=== PATIENT | male | born 1955 | race Caucasian/White ===

== ENCOUNTER 2017-01-11 18:13 | Emergency (ER) | payer SELFPAY ==
[~2017-01-11] VITALS: Ht 182.9 cm; Wt 108.9 kg
[~2017-01-11 18:13] MED LIST: LISI-285 PO
[2017-01-11 18:22] VITALS: BP 153/88
[2017-01-11] MEDS ORDERED: KETOROLAC TROMETH 60MG/2ML VIAL IM ONE (19:45)
== END 2017-01-11 21:20 | disposition home or self-care (01) ==
LOC: ER 18:13
DX: M10.9 Gout, unspecified (principal); M25.561 Pain in right knee; M19.90 Unspecified osteoarthritis, unspecified site; E78.5 Hyperlipidemia, unspecified; I10 Essential (primary) hypertension; F17.210 Nicotine dependence, cigarettes, uncomplicated; Z79.899 Other long term (current) drug therapy
CPT/HCPCS: 36415; 73562; 84550; 96372; 99285; J1885

== ENCOUNTER → 2019-04-29 | Emergency (ER) | payer SELFPAY ==
[~2019-04-29] VITALS: Ht 182.9 cm; Wt 111.1 kg
[~2019-04-29] MED LIST changes: +ASPI81CH43 PO; +ATOR40TA52 PO; +ATORVASTATIN 20 MG TAB PO ONE; +DOCU-94 PO; -LISI-285 PO; +METO25TA5 PO; +POTA-220 PO; +SODIUM CHLORIDE 0.9% 500 ML IV ONE; +TICA90TA PO; +diphenhdrAMINE HCL 50 MG/1 ML VL IV ONE; +methylPREDNISolone SOD SUCC 125 MG/2 ML VL IV ONE
[2019-04-29 23:09] LABS: Basophils # (auto) 0.1 10 ^3/uL (0-0.2); Basophils % (auto) 1.1 % (0.0-2.0); Eosinophils # (auto) 0.4 10 ^3/uL (0-0.8); Eosinophils % (auto) 2.9 % (0.0-7.0); Hematocrit 45.4 % (41.0-53.0); Hemoglobin 15.7 g/dL (13.5-17.5); Lymphocytes # (auto) 2.5 10 ^3/uL (0.4-5.4); Lymphocytes % (auto) 19.6 % (10.0-50.0); Mean Corpuscular Hemoglobin 32.5 pg (28.0-32.0); Mean Corpuscular Hgb Conc. 34.6 g/dL (32.0-36.0); Monocytes # (auto) 1.2 10 ^3/uL (0-1.3); Monocytes % (auto) 9.6 % (0.0-12.0); Neutrophils # (auto) 8.6 10 ^3/uL (1.6-8.6); Neutrophils % (auto) 66.8 % (37.0-80.0); Nucleated Red Blood Cells % 0.2 %; Platelet Count (auto) 280 10^3/uL (140-450); Red Blood Cells 4.83 10^6/uL (4.5-5.90); Red Cell Distribution Width 12.5 % (11.8-14.3); White Blood Cell 12.8 10^3/uL (4.4-10.8)
[2019-04-29 23:20] VITALS: BP 115/63
[2019-04-29 23:26] LABS: Albumin 3.4 g/dL (3.4-5.0); BUN/Creatinine Ratio 15.7; Calcium 8.6 mg/dL (8.5-10.1); Potassium 4.3 mmol/L (3.5-5.1)
[2019-04-29 23:31] LABS: Bilirubin, Total 0.4 mg/dL (0.2-1.0); Total Protein 7.8 g/dL (6.4-8.2)
== END | disposition home or self-care (01) ==
LOC: ER 17:50
DX: T78.40XA Allergy, unspecified, initial encounter (principal); M19.90 Unspecified osteoarthritis, unspecified site; I10 Essential (primary) hypertension; I25.2 Old myocardial infarction; Z86.73 Personal history of transient ischemic attack (TIA), and cerebral infarction without residual deficits; F17.210 Nicotine dependence, cigarettes, uncomplicated; Z88.8 Allergy status to other drugs, medicaments and biological substances; X58.XXXA Exposure to other specified factors, initial encounter
CPT/HCPCS: 36415; 71045; 80053; 84484; 85025; 96374; 96375; 99284; J1200; J2930

== ENCOUNTER → 2019-09-12 | Outpatient (CLI) | payer MEDICAID ==
[~2019-09-12] MED LIST changes: -ATORVASTATIN 20 MG TAB PO ONE; -SODIUM CHLORIDE 0.9% 500 ML IV ONE; -TICA90TA PO; -diphenhdrAMINE HCL 50 MG/1 ML VL IV ONE; -methylPREDNISolone SOD SUCC 125 MG/2 ML VL IV ONE
== END | disposition home or self-care (01) ==
LOC: Rad HDHVI 08:47
PROVIDERS: ATTEND Internal Medicine Cardiovascular Disease
DX: I21.19 ST elevation (STEMI) myocardial infarction involving other coronary artery of inferior wall (principal); Z95.5 Presence of coronary angioplasty implant and graft
CPT/HCPCS: 93306

== ENCOUNTER → 2019-09-29 | Outpatient (CLI) | payer MEDICARE, MEDICAID ==
[~2019-09-29] VITALS: Ht 182.9 cm; Wt 115.7 kg
[~2019-09-29] MED LIST changes: +ADENOSINE 90 MG/30 ML INJ IV ONE; +ADENOSINE 97 MG in GIVE UN-DILUTED 0 ML IV ONE
== END | disposition home or self-care (01) ==
LOC: Rad HDHVI 08:47
PROVIDERS: ATTEND Internal Medicine Cardiovascular Disease
DX: I10 Essential (primary) hypertension (principal); I25.10 Atherosclerotic heart disease of native coronary artery without angina pectoris; I25.2 Old myocardial infarction; E78.00 Pure hypercholesterolemia, unspecified
CPT/HCPCS: 78452; 93005; 96374; 96375; A9500; J0153

== ENCOUNTER → 2020-03-04 | Outpatient (CLI) | payer MEDICARE, MEDICAID ==
[~2020-03-04] MED LIST changes: -ADENOSINE 90 MG/30 ML INJ IV ONE; -ADENOSINE 97 MG in GIVE UN-DILUTED 0 ML IV ONE
== END | disposition home or self-care (01) ==
LOC: LAB 11:48
PROVIDERS: ATTEND Urology
DX: R97.20 Elevated prostate specific antigen [PSA] (principal)
CPT/HCPCS: 84154

== ENCOUNTER → 2020-04-01 | Outpatient (CLI) | payer MEDICARE, MEDICAID | END | disposition home or self-care (01) | LOC: LAB 17:34 | PROVIDERS: ATTEND Urology | DX: N39.0 Urinary tract infection, site not specified (principal) | CPT/HCPCS: 87086 ==

== ENCOUNTER → 2020-04-22 | Outpatient (CLI) | payer MEDICARE, MEDICAID | END | disposition home or self-care (01) | LOC: LAB 08:00 | PROVIDERS: ATTEND Urology | DX: R35.1 Nocturia (principal); N39.0 Urinary tract infection, site not specified | CPT/HCPCS: 84154 ==

== ENCOUNTER → 2020-06-28 | Outpatient (CLI) | payer MEDICARE, MEDICAID ==
[2020-06-28 12:06] LABS: Urine Blood Negative /uL (Negative); Urine Specific Gravity 1.028 (1.001-1.035)
[2020-06-28 12:08] LABS: Basophils # (auto) 0 10 ^3/uL (0-0.2); Basophils % (auto) 0.3 % (0.0-2.0); Eosinophils # (auto) 0.1 10 ^3/uL (0-0.8); Eosinophils % (auto) 0.6 % (0.0-7.0); Hematocrit 45.3 % (41.0-53.0); Hemoglobin 15.5 g/dL (13.5-17.5); Lymphocytes % (auto) 35.3 % (10.0-50.0); Mean Corpuscular Hemoglobin 32.2 pg (28.0-32.0); Mean Corpuscular Hgb Conc. 34.3 g/dL (32.0-36.0); Mean Corpuscular Volume 93.9 fL (80.0-100.0); Monocytes # (auto) 1.2 10 ^3/uL (0-1.3); Monocytes % (auto) 8.2 % (0.0-12.0); Neutrophils # (auto) 7.9 10 ^3/uL (1.6-8.6); Neutrophils % (auto) 55.6 % (37.0-80.0); Nucleated Red Blood Cells % 0.1 %; Platelet Count (auto) 316 10^3/uL (140-450); Red Blood Cells 4.82 10^6/uL (4.5-5.90); Red Cell Distribution Width 12.9 % (11.8-14.3); White Blood Cell 14.3 10^3/uL (4.4-10.8)
[2020-06-28 12:24] LABS: Potassium 3.7 mmol/L (3.5-5.1)
[2020-06-28 12:34] LABS: Albumin 3.2 g/dL (3.4-5.0); BUN/Creatinine Ratio 25.3; Bilirubin, Total 0.4 mg/dL (0.2-1.0); Calcium 8.6 mg/dL (8.5-10.1); Total Protein 7.2 g/dL (6.4-8.2)
[2020-06-28 12:46] LABS: Free T4 (Free Thyroxine) 1.02 ng/dL (0.89-1.76)
[2020-06-28 12:47] LABS: Prostate Specific Antigen 0.98 ng/mL (0.0-4.0)
== END | disposition home or self-care (01) ==
LOC: LAB 08:02
PROVIDERS: ATTEND Internal Medicine Cardiovascular Disease
DX: C61 Malignant neoplasm of prostate (principal); D51.3 Other dietary vitamin B12 deficiency anemia; I10 Essential (primary) hypertension; E11.9 Type 2 diabetes mellitus without complications; E55.9 Vitamin D deficiency, unspecified; D64.9 Anemia, unspecified; R00.2 Palpitations; R53.1 Weakness; R30.0 Dysuria
CPT/HCPCS: 36415; 80053; 80061; 81003; 82306; 82607; 83036; 84153; 84403; 84439; 84443; 85025; 87086

== ENCOUNTER → 2020-07-05 | Outpatient (CLI) | payer MEDICARE, MEDICAID ==
[~2020-07-05] VITALS: Ht 30.5 cm; Wt 0.5 kg
[~2020-07-05] MED LIST changes: +levoFLOXacin 500MG 100 ML IV ONE
[2020-07-05 11:19] VITALS: BP 134/78
[2020-07-05 12:50] VITALS: BP 131/87
== END | disposition home or self-care (01) ==
LOC: CHF HDHVI 11:20
PROVIDERS: ATTEND Internal Medicine Cardiovascular Disease
DX: R05 Cough (principal); D64.9 Anemia, unspecified; I10 Essential (primary) hypertension; E11.9 Type 2 diabetes mellitus without complications; Z85.46 Personal history of malignant neoplasm of prostate
CPT/HCPCS: 96365; G0463; J1956

== ENCOUNTER 2021-02-28 09:46 | Inpatient (IN) | payer MEDICARE, MEDICAID ==
[~2021-02-28] VITALS: Ht 182.9 cm; Wt 111.5 kg
[~2021-02-28 09:46] MED LIST changes: -levoFLOXacin 500MG 100 ML IV ONE
[2021-02-28 11:19] LABS: Basophils # (auto) 0 10 ^3/uL (0-0.2); Basophils % (auto) 0.4 % (0.0-2.0); Eosinophils # (auto) 0 10 ^3/uL (0-0.8); Hematocrit 45.3 % (41.0-53.0); Hemoglobin 15.8 g/dL (13.5-17.5); Lymphocytes # (auto) 1.3 10 ^3/uL (0.4-5.4); Lymphocytes % (auto) 16.7 % (10.0-50.0); Mean Corpuscular Hemoglobin 31.7 pg (28.0-32.0); Mean Corpuscular Hgb Conc. 34.9 g/dL (32.0-36.0); Monocytes % (auto) 13.4 % (0.0-12.0); Neutrophils # (auto) 5.4 10 ^3/uL (1.6-8.6); Neutrophils % (auto) 69.5 % (37.0-80.0); Nucleated Red Blood Cells % 0.2 %; Red Blood Cells 4.98 10^6/uL (4.5-5.90); Red Cell Distribution Width 12.8 % (11.8-14.3); White Blood Cell 7.8 10^3/uL (4.4-10.8)
[2021-02-28 11:26] LABS: Calcium 7.6 mg/dL (8.5-10.1); Potassium 3.3 mmol/L (3.5-5.1)
[2021-02-28 11:31] LABS: Bilirubin, Total 0.7 mg/dL (0.2-1.0); Total Protein 7.5 g/dL (6.4-8.2)
[2021-02-28 13:23] LABS: Urine Bacteria MANY /hpf (None Seen); Urine Blood TRACE /uL (Negative); Urine Mucus FEW (None Seen); Urine Specific Gravity 1.019 (1.001-1.035); Urine WBC 312 /hpf (0 - 3)
[2021-02-28] MEDS ORDERED: SODIUM CHLORIDE 0.9% 500 ML IV ONE (13:45)
[2021-02-28] MEDS ORDERED: AZITHROMYCIN 250 MG TAB PO ONE (13:45)
[2021-02-28] MEDS ORDERED: cefTRIAXone 1GM/50ML D5W 50 ML IV ONE (14:00)
[2021-02-28] MEDS ORDERED: NITROGLYCERIN 0.4 MG SL TAB SL PRN ×2 (15:15→16:45)
[2021-02-28] MEDS ORDERED: MORPHINE SULFATE INJECTION 2 MG/ML SYRG IV PRN ×3 (15:15→16:45)
[2021-02-28] MEDS ORDERED: DOCUSATE SOD 100 MG CAP PO PRN (16:45)
[2021-02-28] MEDS ORDERED: METOCLOPRAMIDE HCL 5MG/ml INJ 2ml VIAL IV PRN (16:45)
[2021-02-28] MEDS ORDERED: HYDROcodone-ACET 5/325MG TAB PO PRN (16:45)
[2021-02-28] MEDS ORDERED: POTASSIUM CHL 20 Meq TABLET PO ONE (16:45)
[2021-02-28] MEDS ORDERED: LORazepam 0.5 MG TAB PO PRN (16:45)
[2021-02-28] MEDS ORDERED: FAMOTIDINE (10MG/ML) 2ML VL IV ONE (16:45)
[2021-02-28] MEDS ORDERED: ALUM & MAG HYDROX-SIMETH LIQ(MAALOX) 30 ML PO PRN (16:45)
[2021-02-28] MEDS ORDERED: REMDESIVIR PER PHARMACY 0 ML IV SCH (16:45)
[2021-02-28] MEDS ORDERED: ACETAMINOPHEN 500 MG TAB PO PRN (16:45)
[2021-02-28] MEDS ORDERED: ALBUTEROL SULF 2.5 MG/0.5ML(0.5%) NEB SOLN NEB ONE (17:00)
[2021-02-28] MEDS ORDERED: BUDESONIDE (INHALATION) 0.5 MG/2 ML NEB NEB ONE (17:00)
[2021-02-28] MEDS ORDERED: IPRATROPIUM BROM 0.5 MG/2.5ML INH SOL NEB ONE (17:00)
[2021-02-28] MEDS ORDERED: hydrALAZINE HCL 20 MG/ML VL IV PRN (17:00)
[2021-02-28] MEDS ORDERED: METOPROLOL SUCCINATE XL 50 MG TAB PO ONE (17:00)
[2021-02-28] MEDS ORDERED: ALBUTEROL SULF 2.5 MG/0.5ML(0.5%) NEB SOLN NEB PRN (17:00)
[2021-02-28] MEDS: FUROSEMIDE 20 MG/2 ML VIAL IV SCH (17:30)
[2021-02-28 17:50] LABS: Amphetamine Screen, Urine NEGATIVE (NEGATIVE); Barbiturate Scree,Urine NEGATIVE (NEGATIVE); Benzodiazephine Screen, Urine NEGATIVE (NEGATIVE); Cannabinoid Screen, Urine NEGATIVE (NEGATIVE); Cocaine Screen, Urine NEGATIVE (NEGATIVE); Opiate Scree,Urine NEGATIVE (NEGATIVE); Phencyclidine Screen, Urine NEGATIVE (NEGATIVE)
[2021-02-28] MEDS ORDERED: IPRATROPIUM BROM 0.5 MG/2.5ML INH SOL NEB SCH (18:00)
[2021-02-28] MEDS: TAMSULOSIN HYDROCHLORIDE 0.4 MG CAP PO SCH (18:56)
[2021-02-28 19:52] LABS: Cholesterol 79 mg/dL (< 200)
[2021-02-28 19:53] LABS: Calcium 7.6 mg/dL (8.5-10.1); Magnesium 1.6 mg/dL (1.6-2.6); Potassium 3.3 mmol/L (3.5-5.1)
[2021-02-28 19:55] LABS: HDL Cholesterol 19 mg/dL (40-59); LDL Cholesterol 49 mg/dL (< 100); Triglycerides 95 mg/dL (< 150)
[2021-02-28] MEDS ORDERED: REMDESIVIR 200 MG in NS 210ml LOADING DOSE ADULT IV ONE (20:00)
[2021-02-28 20:02] LABS: BUN/Creatinine Ratio 13.8; Bilirubin, Total 0.6 mg/dL (0.2-1.0); CRP High Sensitivity 4.39 mg/dL (< 0.3); Total Protein 7.3 g/dL (6.4-8.2)
[2021-02-28 20:03] LABS: Thyroid Stimulating Hormone 0.13 uIU/mL (0.358-3.74)
[2021-02-28] MEDS: BUDESONIDE (INHALATION) 180 MCG IH IN SCH (20:56)
[2021-02-28] MEDS: ALBUTEROL SULF HFA 90MCG INH 200DOSE IN PRN (20:56)
[2021-02-28 22:00] VITALS: BP 115/83
[2021-02-28] MEDS ORDERED: POTASSIUM CHL 20 Meq TABLET PO SCH (22:00)
[2021-02-28] MEDS: ATORVASTATIN 20 MG TAB PO SCH (22:19)
[2021-02-28] MEDS: ENOXAPARIN SOD 40 MG/0.4 ML SYRINGE SC SCH (22:19)
[2021-02-28 22:46] VITALS: BP 115/83
[2021-02-28] MEDS ORDERED: ALBUAER3 INH (22:50)
[2021-02-28] MEDS ORDERED: FURO40TA4 PO (22:50)
[2021-02-28] MEDS ORDERED: LISI20TA28 PO (22:50)
[2021-02-28] MEDS ORDERED: OMEP-260 PO (22:50)
[2021-02-28] MEDS ORDERED: FIN5T PO (22:50)
[2021-02-28] MEDS ORDERED: ALLO300T2 PO (22:50)
[2021-02-28] MEDS ORDERED: TAMS0.4C36 PO (22:50)
[2021-02-28] MEDS ORDERED: MET25T PO (22:50)
[2021-02-28] MEDS ORDERED: FLUT50SP NAS (22:50)
[2021-02-28] MEDS ORDERED: CLOP75TA70 PO (22:50)
[2021-03-01 05:25] VITALS: BP 99/55
[2021-03-01] MEDS: FUROSEMIDE 20 MG/2 ML VIAL IV SCH ×2 (05:59→17:50)
[2021-03-01 06:05] LABS: Basophils # (auto) 0 10 ^3/uL (0-0.2); Basophils % (auto) 0.4 % (0.0-2.0); Eosinophils # (auto) 0 10 ^3/uL (0-0.8); Hematocrit 42.1 % (41.0-53.0); Hemoglobin 14.6 g/dL (13.5-17.5); Lymphocytes # (auto) 1.8 10 ^3/uL (0.4-5.4); Lymphocytes % (auto) 21.2 % (10.0-50.0); Mean Corpuscular Hemoglobin 31.7 pg (28.0-32.0); Mean Corpuscular Hgb Conc. 34.8 g/dL (32.0-36.0); Mean Corpuscular Volume 91.2 fL (80.0-100.0); Monocytes # (auto) 1.1 10 ^3/uL (0-1.3); Monocytes % (auto) 12.3 % (0.0-12.0); Neutrophils # (auto) 5.7 10 ^3/uL (1.6-8.6); Neutrophils % (auto) 66.1 % (37.0-80.0); Nucleated Red Blood Cells % 0.2 %; Red Blood Cells 4.61 10^6/uL (4.5-5.90); Red Cell Distribution Width 13.3 % (11.8-14.3); White Blood Cell 8.6 10^3/uL (4.4-10.8)
[2021-03-01 06:20] LABS: INR 1.14 (0.9-1.15); Partial Thromboplastin Time 34.5 sec (23.6-33.0)
[2021-03-01 06:24] LABS: Albumin 2.7 g/dL (3.4-5.0); Calcium 7.3 mg/dL (8.5-10.1); Magnesium 1.8 mg/dL (1.6-2.6); Potassium 3.6 mmol/L (3.5-5.1); Uric Acid 8.7 mg/dL (3.5-7.2)
[2021-03-01 06:30] LABS: BUN/Creatinine Ratio 14.3; Bilirubin, Total 0.6 mg/dL (0.2-1.0); Phosphorus 3.3 mg/dL (2.5-4.90); Total Protein 6.9 g/dL (6.4-8.2)
[2021-03-01 07:01] LABS: Folate (Folic Acid) 6.2 ng/mL (5.38-24)
[2021-03-01] MEDS: BUDESONIDE (INHALATION) 180 MCG IH IN SCH ×2 (07:51→21:17)
[2021-03-01] MEDS: ALBUTEROL SULF HFA 90MCG INH 200DOSE IN PRN ×2 (07:51→21:17)
[2021-03-01 09:00] VITALS: BP 97/50
[2021-03-01] MEDS ORDERED: FOLIC ACID 1 MG TAB PO ONE (10:15)
[2021-03-01] MEDS: DexAMETHasone SOD PHOS 10MG/1ML VIAL INJ IV SCH (10:48)
[2021-03-01] MEDS: cefTRIAXone 1GM/50ML D5W 50 ML IV SCH (10:48)
[2021-03-01] MEDS: ENOXAPARIN SOD 40 MG/0.4 ML SYRINGE SC SCH ×2 (10:50→21:57)
[2021-03-01] MEDS: ASPirin 81 mg TAB PO SCH (10:50)
[2021-03-01] MEDS: FAMOTIDINE (10MG/ML) 2ML VL IV SCH ×2 (10:50→21:58)
[2021-03-01] MEDS: IVERMECTIN 3 MG TAB PO SCH (10:51)
[2021-03-01] MEDS: ZINC SULFATE 220mg CAP or TAB PO SCH (10:51)
[2021-03-01] MEDS: ASCORBIC ACID 1,000 MG TAB PO SCH (10:51)
[2021-03-01] MEDS: CHOLECALCIFEROL (VITD3) 2,000 UNIT CAP/TAB PO SCH (10:51)
[2021-03-01] MEDS: FINASTERIDE 5 MG TAB PO SCH (10:52)
[2021-03-01] MEDS: METOPROLOL SUCCINATE XL 50 MG TAB PO SCH (10:53)
[2021-03-01] MEDS: BENAZEPRIL HCL 10 MG TAB PO SCH (10:54)
[2021-03-01] MEDS ORDERED: ERGOCALCIFEROL 50,000 UNIT(1.25MG) CAP PO SCH (12:00)
[2021-03-01] MEDS: AZITHROMYCIN 500MG/ 250ML 250 ML IV SCH (12:48)
[2021-03-01 13:00] VITALS: BP 118/67
[2021-03-01] MEDS ORDERED: REMDESIVIR 100mg 100 MG in SODIUM CHL 0.9% 230 ML IV SCH (15:00)
[2021-03-01 17:00] VITALS: BP 109/55
[2021-03-01] MEDS: TAMSULOSIN HYDROCHLORIDE 0.4 MG CAP PO SCH (17:49)
[2021-03-01 21:30] VITALS: BP 118/77
[2021-03-01] MEDS: ATORVASTATIN 20 MG TAB PO SCH (21:57)
[2021-03-01] MEDS ORDERED: REMDESIVIR 100mg 100 MG in SODIUM CHL 0.9% 230 ML IV ONE (22:00)
[2021-03-02 05:00] VITALS: BP 131/71
[2021-03-02] MEDS: FUROSEMIDE 20 MG/2 ML VIAL IV SCH ×2 (06:47→17:49)
[2021-03-02 08:39] LABS: Potassium 4.3 mmol/L (3.5-5.1)
[2021-03-02 08:46] LABS: Albumin 2.8 g/dL (3.4-5.0); BUN/Creatinine Ratio 18.3; Bilirubin, Total 0.6 mg/dL (0.2-1.0); Calcium 7.4 mg/dL (8.5-10.1); Total Protein 6.4 g/dL (6.4-8.2)
[2021-03-02 09:00] VITALS: BP 129/77
[2021-03-02] MEDS: BUDESONIDE (INHALATION) 180 MCG IH IN SCH ×2 (09:24→22:00)
[2021-03-02] MEDS: ALBUTEROL SULF HFA 90MCG INH 200DOSE IN PRN ×2 (09:24→22:57)
[2021-03-02] MEDS: DexAMETHasone SOD PHOS 10MG/1ML VIAL INJ IV SCH (09:39)
[2021-03-02] MEDS: cefTRIAXone 1GM/50ML D5W 50 ML IV SCH (09:39)
[2021-03-02] MEDS: FAMOTIDINE (10MG/ML) 2ML VL IV SCH ×2 (09:39→22:41)
[2021-03-02] MEDS: ASCORBIC ACID 1,000 MG TAB PO SCH (09:40)
[2021-03-02] MEDS: ZINC SULFATE 220mg CAP or TAB PO SCH (09:40)
[2021-03-02] MEDS: METOPROLOL SUCCINATE XL 50 MG TAB PO SCH (09:41)
[2021-03-02] MEDS: CHOLECALCIFEROL (VITD3) 2,000 UNIT CAP/TAB PO SCH (09:41)
[2021-03-02] MEDS: BENAZEPRIL HCL 10 MG TAB PO SCH (09:42)
[2021-03-02] MEDS: FINASTERIDE 5 MG TAB PO SCH (09:42)
[2021-03-02] MEDS: FOLIC ACID 1 MG TAB PO SCH (09:43)
[2021-03-02] MEDS: POTASSIUM CHL 20 Meq TABLET PO SCH (09:43)
[2021-03-02] MEDS: ASPirin 81 mg TAB PO SCH (09:43)
[2021-03-02] MEDS: ENOXAPARIN SOD 40 MG/0.4 ML SYRINGE SC SCH ×2 (09:44→22:41)
[2021-03-02] MEDS: AZITHROMYCIN 500MG/ 250ML 250 ML IV SCH (10:29)
[2021-03-02] MEDS: IVERMECTIN 3 MG TAB PO SCH (12:24)
[2021-03-02 13:00] VITALS: BP 144/99
[2021-03-02] MEDS: REMDESIVIR 100mg 100 MG in SODIUM CHL 0.9% 230 ML IV SCH (16:00)
[2021-03-02] MEDS: CLOPIDOGREL BISULFATE 75 MG TAB PO SCH (16:07)
[2021-03-02 17:00] VITALS: BP 135/103
[2021-03-02] MEDS: TAMSULOSIN HYDROCHLORIDE 0.4 MG CAP PO SCH (17:48)
[2021-03-02 20:00] VITALS: BP 116/65
[2021-03-02 22:00] VITALS: BP 116/65
[2021-03-02] MEDS: ATORVASTATIN 20 MG TAB PO SCH (22:40)
[2021-03-03] MEDS: PROMETHAZINE-DM 5 ML ORAL SYRUP PO PRN (01:46)
[2021-03-03 05:00] VITALS: BP 136/85
[2021-03-03] MEDS: FUROSEMIDE 20 MG/2 ML VIAL IV SCH ×2 (05:50→18:24)
[2021-03-03 09:00] VITALS: BP 115/79
[2021-03-03] MEDS: BUDESONIDE (INHALATION) 180 MCG IH IN SCH ×2 (09:43→21:33)
[2021-03-03] MEDS: ALBUTEROL SULF HFA 90MCG INH 200DOSE IN PRN ×2 (09:43→21:34)
[2021-03-03] MEDS: cefTRIAXone 1GM/50ML D5W 50 ML IV SCH (09:56)
[2021-03-03] MEDS: ENOXAPARIN SOD 40 MG/0.4 ML SYRINGE SC SCH ×2 (09:57→22:06)
[2021-03-03] MEDS: DexAMETHasone SOD PHOS 10MG/1ML VIAL INJ IV SCH (09:57)
[2021-03-03] MEDS: FAMOTIDINE (10MG/ML) 2ML VL IV SCH ×2 (09:57→22:05)
[2021-03-03] MEDS: CHOLECALCIFEROL (VITD3) 2,000 UNIT CAP/TAB PO SCH (09:58)
[2021-03-03] MEDS: ASPirin 81 mg TAB PO SCH (09:58)
[2021-03-03] MEDS: IVERMECTIN 3 MG TAB PO SCH (09:59)
[2021-03-03] MEDS: FOLIC ACID 1 MG TAB PO SCH (09:59)
[2021-03-03] MEDS: FINASTERIDE 5 MG TAB PO SCH (10:00)
[2021-03-03] MEDS: CLOPIDOGREL BISULFATE 75 MG TAB PO SCH (10:01)
[2021-03-03] MEDS: ASCORBIC ACID 1,000 MG TAB PO SCH (10:01)
[2021-03-03] MEDS: POTASSIUM CHL 20 Meq TABLET PO SCH (10:02)
[2021-03-03] MEDS: ZINC SULFATE 220mg CAP or TAB PO SCH (10:02)
[2021-03-03] MEDS: METOPROLOL SUCCINATE XL 50 MG TAB PO SCH (10:03)
[2021-03-03] MEDS: BENAZEPRIL HCL 10 MG TAB PO SCH (10:13)
[2021-03-03] MEDS: AZITHROMYCIN 500MG/ 250ML 250 ML IV SCH (10:46)
[2021-03-03 11:44] LABS: Potassium 3.9 mmol/L (3.5-5.1)
[2021-03-03 11:56] LABS: Albumin 2.8 g/dL (3.4-5.0); Bilirubin, Total 0.5 mg/dL (0.2-1.0); Total Protein 6.5 g/dL (6.4-8.2)
[2021-03-03 13:00] VITALS: BP 157/79
[2021-03-03] MEDS: REMDESIVIR 100mg 100 MG in SODIUM CHL 0.9% 230 ML IV SCH (14:46)
[2021-03-03 17:00] VITALS: BP 145/73
[2021-03-03] MEDS: TAMSULOSIN HYDROCHLORIDE 0.4 MG CAP PO SCH (18:24)
[2021-03-03] MEDS: ATORVASTATIN 20 MG TAB PO SCH (22:05)
[2021-03-04] MEDS: FUROSEMIDE 20 MG/2 ML VIAL IV SCH ×2 (06:45→18:34)
[2021-03-04 08:05] LABS: Basophils # (auto) 0 10 ^3/uL (0-0.2); Basophils % (auto) 0.2 % (0.0-2.0); Eosinophils # (auto) 0 10 ^3/uL (0-0.8); Hematocrit 39.9 % (41.0-53.0); Hemoglobin 13.8 g/dL (13.5-17.5); Lymphocytes # (auto) 0.9 10 ^3/uL (0.4-5.4); Lymphocytes % (auto) 14.3 % (10.0-50.0); Mean Corpuscular Hemoglobin 31.5 pg (28.0-32.0); Mean Corpuscular Hgb Conc. 34.5 g/dL (32.0-36.0); Mean Corpuscular Volume 91.5 fL (80.0-100.0); Monocytes # (auto) 0.8 10 ^3/uL (0-1.3); Monocytes % (auto) 12.9 % (0.0-12.0); Neutrophils # (auto) 4.8 10 ^3/uL (1.6-8.6); Neutrophils % (auto) 72.6 % (37.0-80.0); Nucleated Red Blood Cells % 0.1 %; Red Blood Cells 4.36 10^6/uL (4.5-5.90); Red Cell Distribution Width 12.7 % (11.8-14.3); White Blood Cell 6.6 10^3/uL (4.4-10.8)
[2021-03-04 08:16] LABS: Potassium 4.2 mmol/L (3.5-5.1)
[2021-03-04 08:24] LABS: Albumin 2.6 g/dL (3.4-5.0); BUN/Creatinine Ratio 32.7; Bilirubin, Total 0.4 mg/dL (0.2-1.0); Calcium 7.9 mg/dL (8.5-10.1); Total Protein 5.9 g/dL (6.4-8.2)
[2021-03-04 09:00] VITALS: BP 124/79
[2021-03-04] MEDS: cefTRIAXone 1GM/50ML D5W 50 ML IV SCH (09:19)
[2021-03-04] MEDS: POTASSIUM CHL 20 Meq TABLET PO SCH (09:23)
[2021-03-04] MEDS: ZINC SULFATE 220mg CAP or TAB PO SCH (09:24)
[2021-03-04] MEDS: FOLIC ACID 1 MG TAB PO SCH (09:24)
[2021-03-04] MEDS: ASCORBIC ACID 1,000 MG TAB PO SCH (09:26)
[2021-03-04] MEDS: BENAZEPRIL HCL 10 MG TAB PO SCH (09:26)
[2021-03-04] MEDS: DexAMETHasone SOD PHOS 10MG/1ML VIAL INJ IV SCH (09:26)
[2021-03-04] MEDS: CLOPIDOGREL BISULFATE 75 MG TAB PO SCH (09:26)
[2021-03-04] MEDS: ASPirin 81 mg TAB PO SCH (09:26)
[2021-03-04] MEDS: FAMOTIDINE (10MG/ML) 2ML VL IV SCH ×2 (09:27→21:38)
[2021-03-04] MEDS: ENOXAPARIN SOD 40 MG/0.4 ML SYRINGE SC SCH ×2 (09:27→21:37)
[2021-03-04] MEDS: CHOLECALCIFEROL (VITD3) 2,000 UNIT CAP/TAB PO SCH (09:27)
[2021-03-04] MEDS: IVERMECTIN 3 MG TAB PO SCH (09:27)
[2021-03-04] MEDS: FINASTERIDE 5 MG TAB PO SCH (09:28)
[2021-03-04] MEDS: METOPROLOL SUCCINATE XL 50 MG TAB PO SCH (09:28)
[2021-03-04] MEDS: AZITHROMYCIN 500MG/ 250ML 250 ML IV SCH (10:39)
[2021-03-04] MEDS ORDERED: ALBUAER3 INH (12:29)
[2021-03-04] MEDS ORDERED: DEX4T PO (12:29)
[2021-03-04] MEDS: REMDESIVIR 100mg 100 MG in SODIUM CHL 0.9% 230 ML IV SCH (16:08)
[2021-03-04 17:14] VITALS: BP 132/86
[2021-03-04] MEDS: TAMSULOSIN HYDROCHLORIDE 0.4 MG CAP PO SCH (18:34)
[2021-03-04] MEDS: PROMETHAZINE-DM 5 ML ORAL SYRUP PO PRN (19:46)
[2021-03-04] MEDS: ATORVASTATIN 20 MG TAB PO SCH (21:38)
[2021-03-04 21:53] VITALS: BP 145/81
[2021-03-05 05:02] VITALS: BP 142/84
[2021-03-05] MEDS: BUDESONIDE (INHALATION) 180 MCG IH IN SCH (06:38)
[2021-03-05] MEDS: ALBUTEROL SULF HFA 90MCG INH 200DOSE IN PRN (06:38)
[2021-03-05] MEDS: FUROSEMIDE 20 MG/2 ML VIAL IV SCH (06:48)
[2021-03-05 09:00] VITALS: BP 137/85
[2021-03-05] MEDS: CLOPIDOGREL BISULFATE 75 MG TAB PO SCH (10:22)
[2021-03-05] MEDS: cefTRIAXone 1GM/50ML D5W 50 ML IV SCH (10:22)
[2021-03-05] MEDS: ZINC SULFATE 220mg CAP or TAB PO SCH (10:23)
[2021-03-05] MEDS: POTASSIUM CHL 20 Meq TABLET PO SCH (10:23)
[2021-03-05] MEDS: DexAMETHasone SOD PHOS 10MG/1ML VIAL INJ IV SCH (10:23)
[2021-03-05] MEDS: CHOLECALCIFEROL (VITD3) 2,000 UNIT CAP/TAB PO SCH (10:25)
[2021-03-05] MEDS: ASCORBIC ACID 1,000 MG TAB PO SCH (10:26)
[2021-03-05] MEDS: BENAZEPRIL HCL 10 MG TAB PO SCH (10:27)
[2021-03-05] MEDS: FINASTERIDE 5 MG TAB PO SCH (10:28)
[2021-03-05] MEDS: IVERMECTIN 3 MG TAB PO SCH (10:28)
[2021-03-05] MEDS: FOLIC ACID 1 MG TAB PO SCH (10:29)
[2021-03-05] MEDS: ASPirin 81 mg TAB PO SCH (10:29)
[2021-03-05] MEDS: FAMOTIDINE (10MG/ML) 2ML VL IV SCH (10:41)
[2021-03-05] MEDS: METOPROLOL SUCCINATE XL 50 MG TAB PO SCH (10:43)
[2021-03-05] MEDS: ENOXAPARIN SOD 40 MG/0.4 ML SYRINGE SC SCH (10:44)
[2021-03-05] MEDS: AZITHROMYCIN 500MG/ 250ML 250 ML IV SCH (11:00)
[2021-03-05 11:52] VITALS: BP 137/85
[2021-03-05] MEDS: REMDESIVIR 100mg 100 MG in SODIUM CHL 0.9% 230 ML IV SCH (13:00)
== END 2021-03-05 16:00 | disposition home or self-care (01) | DRG 871 ==
LOC: ER 09:46 → TELE 15:02 → TELE-WESTW 21:57
PROVIDERS: ADMIT Hospitalist; ATTEND Internal Medicine
PROC: XW033E5 Introduction of Remdesivir Anti-infective into Peripheral Vein, Percutaneous Approach, New Technology Group 5 (ICD-10-PCS; principal; 2021-03-01)
PROC: 05HD33Z Insertion of Infusion Device into Right Cephalic Vein, Percutaneous Approach (ICD-10-PCS; 2021-03-04)
PROC: B54MZZA Ultrasonography of Right Upper Extremity Veins, Guidance (ICD-10-PCS; 2021-03-04)
DX: A41.89 Other specified sepsis (principal); U07.1 COVID-19; J12.82 Pneumonia due to coronavirus disease 2019; J96.21 Acute and chronic respiratory failure with hypoxia; I50.33 Acute on chronic diastolic (congestive) heart failure; N39.0 Urinary tract infection, site not specified; J44.1 Chronic obstructive pulmonary disease with (acute) exacerbation; D68.59 Other primary thrombophilia; D89.834 Cytokine release syndrome, grade 4; J44.0 Chronic obstructive pulmonary disease with (acute) lower respiratory infection; E66.01 Morbid (severe) obesity due to excess calories; I11.0 Hypertensive heart disease with heart failure; I25.5 Ischemic cardiomyopathy; N40.0 Benign prostatic hyperplasia without lower urinary tract symptoms; Z23 Encounter for immunization; B96.1 Klebsiella pneumoniae [K. pneumoniae] as the cause of diseases classified elsewhere; E78.5 Hyperlipidemia, unspecified; F17.210 Nicotine dependence, cigarettes, uncomplicated; I25.10 Atherosclerotic heart disease of native coronary artery without angina pectoris; M10.9 Gout, unspecified; M19.90 Unspecified osteoarthritis, unspecified site; R16.0 Hepatomegaly, not elsewhere classified; Z79.02 Long term (current) use of antithrombotics/antiplatelets; Z79.82 Long term (current) use of aspirin; Z79.899 Other long term (current) drug therapy; Z68.33 Body mass index [BMI] 33.0-33.9, adult; Z88.8 Allergy status to other drugs, medicaments and biological substances; Z82.3 Family history of stroke; Z82.49 Family history of ischemic heart disease and other diseases of the circulatory system; Z83.49 Family history of other endocrine, nutritional and metabolic diseases; Z98.61 Coronary angioplasty status; I25.2 Old myocardial infarction
CPT/HCPCS: 36415; 36600; 71045; 71046; 71250; 80053; 80061; 80307; 81001; 82306; 82607; 82728; 82746; 82805; 83036; 83605; 83615; 83735; 83880; 84100; 84154; 84443; 84484; 84550; 85025; 85379; 85610; 85730; 86141; 87040; 87086; 87088; 87186; 87426; 93005; 94640; 96365; 96375; G0378; J0696; J1100; J3490

== ENCOUNTER → 2021-03-31 | Outpatient (CLI) | payer MEDICARE, MEDICAID ==
[~2021-03-31] MED LIST changes: +ALBUAER3 INH; +ALLO300T2 PO; +CLOP75TA70 PO; +DEX4T PO; -DOCU-94 PO; +FIN5T PO; +FLUT50SP NAS; +FURO40TA4 PO; +LISI20TA28 PO; +MET25T PO; -METO25TA5 PO; +OMEP-260 PO; +TAMS0.4C36 PO
== END | disposition home or self-care (01) ==
LOC: LAB 10:25
PROVIDERS: ATTEND Internal Medicine Cardiovascular Disease
DX: C61 Malignant neoplasm of prostate (principal)
CPT/HCPCS: 84153

== ENCOUNTER → 2021-04-13 | Outpatient (CLI) | payer MEDICARE, MEDICAID | END | disposition home or self-care (01) | LOC: Rad HDHVI 12:52 | PROVIDERS: ATTEND Internal Medicine Cardiovascular Disease | DX: I70.203 Unspecified atherosclerosis of native arteries of extremities, bilateral legs (principal); R60.9 Edema, unspecified | CPT/HCPCS: 93925; 93971 ==

== ENCOUNTER → 2021-09-30 | Outpatient (CLI) | payer MEDICARE, MEDICAID ==
[2021-09-30 09:18] LABS: Basophils # (auto) 0.1 10 ^3/uL (0-0.2); Eosinophils # (auto) 0.3 10 ^3/uL (0-0.8); Eosinophils % (auto) 3.7 % (0.0-7.0); Hematocrit 48.9 % (41.0-53.0); Lymphocytes # (auto) 2.6 10 ^3/uL (0.4-5.4); Lymphocytes % (auto) 37.4 % (10.0-50.0); Mean Corpuscular Hemoglobin 30.5 pg (28.0-32.0); Mean Corpuscular Hgb Conc. 32.6 g/dL (32.0-36.0); Mean Corpuscular Volume 93.4 fL (80.0-100.0); Monocytes # (auto) 0.7 10 ^3/uL (0-1.3); Monocytes % (auto) 10.6 % (0.0-12.0); Neutrophils # (auto) 3.2 10 ^3/uL (1.6-8.6); Neutrophils % (auto) 47.3 % (37.0-80.0); Nucleated Red Blood Cells % 0.2 %; Red Blood Cells 5.24 10^6/uL (4.5-5.90); Red Cell Distribution Width 13.1 % (11.8-14.3); Urine Blood Negative /uL (Negative); Urine Specific Gravity 1.023 (1.001-1.035); White Blood Cell 6.9 10^3/uL (4.4-10.8)
[2021-09-30 09:29] LABS: Albumin 3.3 g/dL (3.4-5.0); Potassium 4.7 mmol/L (3.5-5.1)
[2021-09-30 09:32] LABS: Total Protein 7.4 g/dL (6.4-8.2)
[2021-09-30 10:24] LABS: BUN/Creatinine Ratio 13.5; Calcium 8.8 mg/dL (8.5-10.1)
[2021-09-30 11:16] LABS: Free T4 (Free Thyroxine) 0.96 ng/dL (0.89-1.76); Prostate Specific Antigen 0.34 ng/mL (0.0-4.0)
== END | disposition home or self-care (01) ==
LOC: LAB 08:32
PROVIDERS: ATTEND Internal Medicine Cardiovascular Disease
DX: C61 Malignant neoplasm of prostate (principal); D64.9 Anemia, unspecified; E11.9 Type 2 diabetes mellitus without complications; D51.3 Other dietary vitamin B12 deficiency anemia; E55.9 Vitamin D deficiency, unspecified; I10 Essential (primary) hypertension; R00.2 Palpitations; R53.1 Weakness; R30.0 Dysuria
CPT/HCPCS: 36415; 80053; 80061; 81003; 82306; 82607; 83036; 84153; 84403; 84439; 84443; 85025

== ENCOUNTER → 2021-10-26 | Outpatient (CLI) | payer MEDICARE, MEDICAID | END | disposition home or self-care (01) | LOC: Rad HDHVI 08:55 | PROVIDERS: ATTEND Internal Medicine Cardiovascular Disease | DX: E78.5 Hyperlipidemia, unspecified (principal); I10 Essential (primary) hypertension; I65.09 Occlusion and stenosis of unspecified vertebral artery | CPT/HCPCS: 93880 ==

== ENCOUNTER → 2021-11-15 | Outpatient (CLI) | payer MEDICARE, MEDICAID | END | disposition home or self-care (01) | LOC: Rad HDHVI 08:58 | PROVIDERS: ATTEND Internal Medicine Cardiovascular Disease | DX: I07.1 Rheumatic tricuspid insufficiency (principal); I10 Essential (primary) hypertension; R06.02 Shortness of breath | CPT/HCPCS: 93306 ==

== ENCOUNTER → 2021-11-28 | Outpatient (CLI) | payer MEDICARE, MEDICAID ==
[~2021-11-28] VITALS: Ht 182.9 cm; Wt 120.2 kg
[~2021-11-28] MED LIST changes: +ADENOSINE 101 MG in GIVE UN-DILUTED 0 ML IV ONE; +ADENOSINE 90 MG/30 ML INJ IV ONE
== END | disposition home or self-care (01) ==
LOC: Rad HDHVI 08:01
PROVIDERS: ATTEND Internal Medicine Cardiovascular Disease
DX: I11.0 Hypertensive heart disease with heart failure (principal); I50.9 Heart failure, unspecified; R07.9 Chest pain, unspecified; I25.2 Old myocardial infarction; R06.02 Shortness of breath; J44.9 Chronic obstructive pulmonary disease, unspecified; I20.9 Angina pectoris, unspecified; E78.5 Hyperlipidemia, unspecified; E66.01 Morbid (severe) obesity due to excess calories; Z82.49 Family history of ischemic heart disease and other diseases of the circulatory system
CPT/HCPCS: 78452; 93005; 96374; 96375; A9500; J0153

== ENCOUNTER 2022-05-01 18:06 | Inpatient (IN) | payer MEDICARE, MEDICAID ==
[~2022-05-01] VITALS: Ht 180.3 cm; Wt 138.9 kg
[~2022-05-01 18:06] MED LIST changes: -ADENOSINE 101 MG in GIVE UN-DILUTED 0 ML IV ONE; -ADENOSINE 90 MG/30 ML INJ IV ONE; -DEX4T PO
[2022-05-01] MEDS ORDERED: ONDANSETRON HCL 4 MG/2 ML VIAL IV ONE (20:30)
[2022-05-01] MEDS ORDERED: MORPHINE SULFATE 4 MG/ML SYR/VIAL IV ONE (20:30)
[2022-05-01] MEDS ORDERED: SODIUM CHLORIDE 0.9% 500 ML IV ONE (20:30)
[2022-05-01 21:49] LABS: Basophils # (auto) 0.1 10 ^3/uL (0-0.2); Eosinophils % (auto) 8.5 % (0.0-7.0); Hemoglobin 11.7 g/dL (13.5-17.5); Neutrophils # (auto) 3.5 10 ^3/uL (1.6-8.6); Nucleated Red Blood Cells % 0.2 %
[2022-05-01 21:50] LABS: Basophils % (auto) 0.9 % (0.0-2.0); Eosinophils # (auto) 0.8 10 ^3/uL (0-0.8); Hematocrit 34.1 % (41.0-53.0); Lymphocytes # (auto) 3.5 10 ^3/uL (0.4-5.4); Lymphocytes % (auto) 39.1 % (10.0-50.0); Mean Corpuscular Hemoglobin 31.7 pg (28.0-32.0); Mean Corpuscular Hgb Conc. 34.3 g/dL (32.0-36.0); Mean Corpuscular Volume 92.3 fL (80.0-100.0); Monocytes % (auto) 11.5 % (0.0-12.0); Red Cell Distribution Width 15.7 % (11.8-14.3); White Blood Cell 8.8 10^3/uL (4.4-10.8)
[2022-05-01 22:07] LABS: Albumin 2.9 g/dL (3.4-5.0); Calcium 8.1 mg/dL (8.5-10.1); Potassium 3.7 mmol/L (3.5-5.1)
[2022-05-01 22:09] LABS: BUN/Creatinine Ratio 12.8
[2022-05-01 22:11] LABS: Bilirubin, Total 0.5 mg/dL (0.2-1.0); Total Protein 7.7 g/dL (6.4-8.2)
[2022-05-01] MEDS ORDERED: MORPHINE SULFATE INJ 2 MG/ml SYRG IV PRN (23:00)
[2022-05-01] MEDS ORDERED: NITROGLYCERIN 0.4 MG SL TAB SL PRN (23:00)
[2022-05-01] MEDS ORDERED: DEXTROSE (50%) 50ML SYRG IV PRN (23:00)
[2022-05-02] MEDS: ACCU-CHEK COMFORT CURVE STRIP VI SCH ×4 (06:16→22:25)
[2022-05-02] MEDS: InsuLIN REG 1unit/0.01ml Soln (100units/ml) SC SCH ×4 (07:00→22:00)
[2022-05-02 12:58] LABS: Urine Bacteria NONE SEEN /hpf (None Seen); Urine Blood Negative /uL (Negative); Urine Hyaline Cast FEW /lpf (0 - 2); Urine Mucus FEW (None Seen); Urine Specific Gravity 1.019 (1.001-1.035); Urine WBC 11 /hpf (0 - 3)
[2022-05-02 22:00] VITALS: BP 118/68
[2022-05-02] MEDS: HYDROcodone-ACET 10/325MG TAB PO PRN (22:25)
[2022-05-03 05:00] VITALS: BP 111/45
[2022-05-03] MEDS: ACCU-CHEK COMFORT CURVE STRIP VI SCH ×4 (06:08→21:28)
[2022-05-03] MEDS: InsuLIN REG 1unit/0.01ml Soln (100units/ml) SC SCH ×4 (06:09→21:28)
[2022-05-03 09:00] VITALS: BP 124/74
[2022-05-03 13:00] VITALS: BP 109/68
[2022-05-03 16:28] VITALS: BP 110/64
[2022-05-03 22:00] VITALS: BP 110/60
[2022-05-04 05:00] VITALS: BP 132/60
[2022-05-04] MEDS: ACCU-CHEK COMFORT CURVE STRIP VI SCH ×2 (06:27→11:30)
[2022-05-04] MEDS: InsuLIN REG 1unit/0.01ml Soln (100units/ml) SC SCH ×2 (06:27→11:30)
[2022-05-04 08:00] VITALS: BP 146/82
[2022-05-04] MEDS ORDERED: MET25T PO (10:38)
[2022-05-04 12:00] VITALS: BP 121/83
[2022-05-04] MEDS ORDERED: ARTIFICIAL TEARS 15ml EACHEYE PRN (14:30)
[2022-05-04] MEDS ORDERED: ACETAMINOPHEN 325 MG TAB PO PRN (14:30)
[2022-05-04] MEDS: LACTULOSE 20Gm/30ML SOLN PO PRN (15:52)
[2022-05-04] MEDS ORDERED: APIX2.5T PO (15:53)
[2022-05-04 16:00] VITALS: BP 99/60
[2022-05-04] MEDS: TAMSULOSIN HYDROCHLORIDE 0.4 MG CAP PO SCH (18:30)
[2022-05-04] MEDS: ATORVASTATIN 20 MG TAB PO SCH (21:37)
[2022-05-04] MEDS: PANTOPRAZOLE 40 MG TAB PO SCH ×2 (21:37→21:40)
[2022-05-04] MEDS: APIXABAN 2.5 MG TAB PO SCH (21:37)
[2022-05-04] MEDS: METOPROLOL TARTRATE 25 MG TAB PO SCH (21:40)
[2022-05-04 22:00] VITALS: BP 106/62
[2022-05-05] MEDS: LACTULOSE 20Gm/30ML SOLN PO PRN (03:13)
[2022-05-05 05:00] VITALS: BP 122/74
[2022-05-05] MEDS: HYDROcodone-ACET 10/325MG TAB PO PRN (06:57)
[2022-05-05 08:31] VITALS: BP 133/86
[2022-05-05] MEDS: FLUTICASONE PROP NASAL SPR 0.05 % (50MCG) 16GM EACHNOSTRI SCH (10:00)
[2022-05-05] MEDS ORDERED: PANTOPRAZOLE 40 MG TAB PO SCH (10:00)
[2022-05-05] MEDS: ALLOPURINOL 300 MG TAB PO SCH (10:28)
[2022-05-05] MEDS: POTASSIUM CHL 20 Meq TABLET PO SCH (10:28)
[2022-05-05] MEDS: LISINOPRIL 20 MG TAB PO SCH (10:29)
[2022-05-05] MEDS: APIXABAN 2.5 MG TAB PO SCH ×2 (10:30→22:54)
[2022-05-05] MEDS: CLOPIDOGREL BISULFATE 75 MG TAB PO SCH (10:32)
[2022-05-05] MEDS: ASPirin 81 mg TAB PO SCH (10:33)
[2022-05-05] MEDS: METOPROLOL TARTRATE 25 MG TAB PO SCH ×2 (10:33→22:54)
[2022-05-05] MEDS: FUROSEMIDE 40 MG TAB PO SCH (10:34)
[2022-05-05 12:30] VITALS: BP 117/81
[2022-05-05 17:00] VITALS: BP 119/79
[2022-05-05] MEDS ORDERED: BISACODYL 10 MG RECT SUPP PR ONE (17:15)
[2022-05-05] MEDS: TAMSULOSIN HYDROCHLORIDE 0.4 MG CAP PO SCH (18:00)
[2022-05-05] MEDS: PANTOPRAZOLE 40 MG TAB PO SCH (22:54)
[2022-05-05] MEDS: ATORVASTATIN 20 MG TAB PO SCH (22:54)
[2022-05-06 05:00] VITALS: BP 116/63
[2022-05-06 09:00] VITALS: BP 134/79
[2022-05-06] MEDS: ASPirin 81 mg TAB PO SCH (10:07)
[2022-05-06] MEDS: FLUTICASONE PROP NASAL SPR 0.05 % (50MCG) 16GM EACHNOSTRI SCH (10:07)
[2022-05-06] MEDS: ALLOPURINOL 300 MG TAB PO SCH (10:08)
[2022-05-06] MEDS: POTASSIUM CHL 20 Meq TABLET PO SCH (10:08)
[2022-05-06] MEDS: LISINOPRIL 20 MG TAB PO SCH (10:09)
[2022-05-06] MEDS: METOPROLOL TARTRATE 25 MG TAB PO SCH ×2 (10:10→21:37)
[2022-05-06] MEDS: CLOPIDOGREL BISULFATE 75 MG TAB PO SCH (10:11)
[2022-05-06] MEDS: APIXABAN 2.5 MG TAB PO SCH ×2 (10:11→21:36)
[2022-05-06] MEDS: FUROSEMIDE 40 MG TAB PO SCH (10:11)
[2022-05-06 13:00] VITALS: BP 108/72
[2022-05-06 17:25] VITALS: BP_SYST 101; BP_SYST 142; BP_DIAS 54; BP_DIAS 70
[2022-05-06] MEDS: TAMSULOSIN HYDROCHLORIDE 0.4 MG CAP PO SCH (17:35)
[2022-05-06] MEDS: PANTOPRAZOLE 40 MG TAB PO SCH (21:36)
[2022-05-06] MEDS: ATORVASTATIN 20 MG TAB PO SCH (21:36)
[2022-05-06 22:00] VITALS: BP 94/58
[2022-05-07 05:00] VITALS: BP 119/65
[2022-05-07 08:54] VITALS: BP 118/73
[2022-05-07] MEDS: FLUTICASONE PROP NASAL SPR 0.05 % (50MCG) 16GM EACHNOSTRI SCH (10:00)
[2022-05-07] MEDS: POTASSIUM CHL 20 Meq TABLET PO SCH (10:40)
[2022-05-07] MEDS: ALLOPURINOL 300 MG TAB PO SCH (10:41)
[2022-05-07] MEDS: LISINOPRIL 20 MG TAB PO SCH (10:42)
[2022-05-07] MEDS: APIXABAN 2.5 MG TAB PO SCH ×2 (10:42→21:51)
[2022-05-07] MEDS: METOPROLOL TARTRATE 25 MG TAB PO SCH ×2 (10:43→21:52)
[2022-05-07] MEDS: FUROSEMIDE 40 MG TAB PO SCH (10:43)
[2022-05-07] MEDS: ASPirin 81 mg TAB PO SCH (10:44)
[2022-05-07] MEDS: CLOPIDOGREL BISULFATE 75 MG TAB PO SCH (10:44)
[2022-05-07 13:00] VITALS: BP 123/81
[2022-05-07 17:00] VITALS: BP 115/80
[2022-05-07] MEDS: TAMSULOSIN HYDROCHLORIDE 0.4 MG CAP PO SCH (17:11)
[2022-05-07] MEDS: PANTOPRAZOLE 40 MG TAB PO SCH (21:51)
[2022-05-07] MEDS: ATORVASTATIN 20 MG TAB PO SCH (21:51)
[2022-05-07 22:00] VITALS: BP 119/60
[2022-05-08 05:00] VITALS: BP 116/74
[2022-05-08 08:10] VITALS: BP 131/82
[2022-05-08] MEDS: ALLOPURINOL 300 MG TAB PO SCH (09:54)
[2022-05-08] MEDS: POTASSIUM CHL 20 Meq TABLET PO SCH (09:54)
[2022-05-08] MEDS: APIXABAN 2.5 MG TAB PO SCH ×2 (09:54→21:54)
[2022-05-08] MEDS: CLOPIDOGREL BISULFATE 75 MG TAB PO SCH (09:54)
[2022-05-08] MEDS: ASPirin 81 mg TAB PO SCH (09:55)
[2022-05-08] MEDS: FUROSEMIDE 40 MG TAB PO SCH (09:55)
[2022-05-08] MEDS: METOPROLOL TARTRATE 25 MG TAB PO SCH ×2 (09:56→22:00)
[2022-05-08] MEDS: LISINOPRIL 20 MG TAB PO SCH (09:59)
[2022-05-08] MEDS: FLUTICASONE PROP NASAL SPR 0.05 % (50MCG) 16GM EACHNOSTRI SCH (09:59)
[2022-05-08 12:15] VITALS: BP 127/84
[2022-05-08 16:10] VITALS: BP 126/79
[2022-05-08 17:53] VITALS: BP 124/69
[2022-05-08] MEDS: TAMSULOSIN HYDROCHLORIDE 0.4 MG CAP PO SCH (19:24)
[2022-05-08] MEDS: PANTOPRAZOLE 40 MG TAB PO SCH (21:54)
[2022-05-08] MEDS: ATORVASTATIN 20 MG TAB PO SCH (21:55)
[2022-05-08 22:00] VITALS: BP 100/65
[2022-05-08] MEDS: HYDROcodone-ACET 10/325MG TAB PO PRN (22:06)
[2022-05-09 05:00] VITALS: BP 135/85
[2022-05-09 09:00] VITALS: BP 132/83
[2022-05-09] MEDS: FLUTICASONE PROP NASAL SPR 0.05 % (50MCG) 16GM EACHNOSTRI SCH (10:00)
[2022-05-09] MEDS: CLOPIDOGREL BISULFATE 75 MG TAB PO SCH (11:22)
[2022-05-09] MEDS: METOPROLOL TARTRATE 25 MG TAB PO SCH (11:22)
[2022-05-09] MEDS: ALLOPURINOL 300 MG TAB PO SCH (11:22)
[2022-05-09] MEDS: APIXABAN 2.5 MG TAB PO SCH (11:22)
[2022-05-09] MEDS: FUROSEMIDE 40 MG TAB PO SCH (11:23)
[2022-05-09] MEDS: POTASSIUM CHL 20 Meq TABLET PO SCH (11:23)
[2022-05-09] MEDS: ASPirin 81 mg TAB PO SCH (11:23)
[2022-05-09] MEDS: LISINOPRIL 20 MG TAB PO SCH (11:23)
[2022-05-09 13:00] VITALS: BP 93/60
[2022-05-09 16:44] VITALS: BP 103/63
[2022-05-09] MEDS: TAMSULOSIN HYDROCHLORIDE 0.4 MG CAP PO SCH (18:00)
== END 2022-05-09 18:00 | DRG 552 ==
LOC: EDUNIT# 18:06 → EDBD 18:06 → ER 18:15 → OVERFLOW 23:02 → WEST WING 05-02 21:07
PROVIDERS: ADMIT Internal Medicine Cardiovascular Disease; ATTEND Internal Medicine Cardiovascular Disease
DX: M54.89 Other dorsalgia (principal); Z68.41 Body mass index [BMI] 40.0-44.9, adult; I25.10 Atherosclerotic heart disease of native coronary artery without angina pectoris; E66.9 Obesity, unspecified; E78.5 Hyperlipidemia, unspecified; F17.210 Nicotine dependence, cigarettes, uncomplicated; I10 Essential (primary) hypertension; R53.1 Weakness; Z20.822 Contact with and (suspected) exposure to COVID-19; G89.29 Other chronic pain; M21.379 Foot drop, unspecified foot; Z98.61 Coronary angioplasty status; Z82.3 Family history of stroke; I25.2 Old myocardial infarction; Z88.8 Allergy status to other drugs, medicaments and biological substances
CPT/HCPCS: 36415; 74018; 80053; 81001; 82962; 85025; 87081; 87426; 96361; 96374; 96375; 97110; 97530; G0378; J1815; J2405

== ENCOUNTER → 2022-08-07 | Outpatient (CLI) | payer MEDICARE, MEDICAID ==
[~2022-08-07] MED LIST changes: +APIX2.5T PO; -LISI20TA28 PO; +LISI20TA56 PO; -OMEP-260 PO; +OMEP1CAP70 PO
== END | disposition home or self-care (01) ==
LOC: Rad HDHVI 15:25
PROVIDERS: ATTEND Internal Medicine Cardiovascular Disease
DX: J44.9 Chronic obstructive pulmonary disease, unspecified (principal)
CPT/HCPCS: 71046

== ENCOUNTER → 2022-11-06 | Outpatient (CLI) | payer MEDICARE, MEDICAID ==
[~2022-11-06] MED LIST changes: +cefTRIAXone 1GM/50ML D5W 50 ML IV ONE
[2022-11-06 13:22] VITALS: BP 128/64; PULSE 88; RESP 16; O2SAT 96
[2022-11-06] MEDS: cefTRIAXone 1GM/50ML D5W 100 ML IV ONE ×2 (13:52→14:17)
[2022-11-06 14:57] VITALS: BP 124/83; PULSE 78; RESP 16; O2SAT 96
== END | disposition home or self-care (01) ==
LOC: CHF HDHVI 13:44
PROVIDERS: ATTEND Internal Medicine Cardiovascular Disease
DX: L03.116 Cellulitis of left lower limb (principal); J44.9 Chronic obstructive pulmonary disease, unspecified
CPT/HCPCS: 96365; G0463; J0696

== ENCOUNTER 2022-11-13 10:59 | Emergency (ER) | payer MEDICARE, MEDICAID ==
[~2022-11-13] VITALS: Ht 182.9 cm; Wt 126.1 kg
[~2022-11-13 10:59] MED LIST changes: -cefTRIAXone 1GM/50ML D5W 50 ML IV ONE
[2022-11-13 12:55] VITALS: BP 117/75; PULSE 66; RESP 20; TEMP 97.5; O2SAT 95
== END 2022-11-13 12:57 | disposition home or self-care (01) ==
LOC: ER 10:59
DX: I87.2 Venous insufficiency (chronic) (peripheral) (principal); I11.0 Hypertensive heart disease with heart failure; I50.9 Heart failure, unspecified; E78.5 Hyperlipidemia, unspecified; M10.9 Gout, unspecified; I25.2 Old myocardial infarction; I25.10 Atherosclerotic heart disease of native coronary artery without angina pectoris; M19.90 Unspecified osteoarthritis, unspecified site; F17.210 Nicotine dependence, cigarettes, uncomplicated; Z98.890 Other specified postprocedural states; Z79.82 Long term (current) use of aspirin; Z79.899 Other long term (current) drug therapy; Z88.8 Allergy status to other drugs, medicaments and biological substances
CPT/HCPCS: 93005; 93971

== ENCOUNTER 2022-11-24 09:57 | Emergency (ER) | payer MEDICARE, MEDICAID ==
[~2022-11-24] VITALS: Ht 182.9 cm; Wt 125.8 kg
[2022-11-24 10:49] LABS: Basophils # (auto) 0.1 10 ^3/uL (0-0.2); Basophils % (auto) 0.4 % (0.0-2.0); Eosinophils # (auto) 0.2 10 ^3/uL (0-0.8); Eosinophils % (auto) 1.6 % (0.0-7.0); Hematocrit 45.5 % (41.0-53.0); Lymphocytes % (auto) 22.2 % (10.0-50.0); Mean Corpuscular Hemoglobin 31.4 pg (28.0-32.0); Mean Corpuscular Volume 95.3 fL (80.0-100.0); Monocytes # (auto) 1.4 10 ^3/uL (0-1.3); Monocytes % (auto) 10.7 % (0.0-12.0); Neutrophils # (auto) 8.8 10 ^3/uL (1.6-8.6); Neutrophils % (auto) 65.1 % (37.0-80.0); Nucleated Red Blood Cells % 0.1 %; Red Blood Cells 4.77 10^6/uL (4.5-5.90); Red Cell Distribution Width 16.4 % (11.8-14.3); White Blood Cell 13.5 10^3/uL (4.4-10.8)
[2022-11-24 11:05] LABS: Alanine Aminotransferase 145 U/L (7-40); Albumin 4.3 g/dL (3.2-4.8); Alkaline Phosphatase 162 U/L (46-116); Anion Gap 8 (5-15); Aspartate Aminotransferase 130 U/L (13-40); BUN/Creatinine Ratio 13.9 (10.0-20.0); Bilirubin, Total 0.8 mg/dL (0.2-1.0); Blood Urea Nitrogen 16 mg/dL (9-23); Calcium 9.4 mg/dL (8.7-10.4); Carbon Dioxide 29 mmol/L (20-30); Chloride 101 mmol/L (98-107); Glucose 152 mg/dL (74-106); Potassium 4.1 mmol/L (3.5-5.1); Sodium 138 mmol/L (136-145); Total Protein 7.5 g/dL (5.7-8.2)
[2022-11-24 11:09] LABS: INR 1.07 (0.9-1.15); Partial Thromboplastin Time 28.8 SEC (24.5-34.5); Prothrombin Time 11.2 sec (9.3-11.8)
[2022-11-24 11:16] LABS: Urine Bacteria NONE SEEN /hpf (None Seen); Urine Blood Negative /uL (Negative); Urine Clarity Clear (Clear); Urine Color Yellow (Yellow); Urine Protein, UAD Negative (Negative); Urine Specific Gravity 1.015 (1.001-1.035); Urine Urobilinogen Normal (Negative); Urine WBC <1 /hpf (0 - 3)
[2022-11-24] MEDS ORDERED: traMADol HCL 50 MG TAB PO ONE (13:15)
[2022-11-24 14:11] VITALS: BP 121/64; PULSE 88; RESP 16; TEMP 98.1; O2SAT 94
== END 2022-11-24 14:15 | disposition home or self-care (01) ==
LOC: ER 09:57
DX: N40.1 Benign prostatic hyperplasia with lower urinary tract symptoms (principal); R33.8 Other retention of urine; I10 Essential (primary) hypertension; Z88.8 Allergy status to other drugs, medicaments and biological substances; Z79.4 Long term (current) use of insulin; Z79.899 Other long term (current) drug therapy
CPT/HCPCS: 36415; 71045; 74176; 80053; 81001; 84484; 85025; 85610; 85730; 86850; 86900; 86901; 93005

== ENCOUNTER 2022-11-26 00:33 | Inpatient (IN) | payer MEDICARE, MEDICAID ==
[~2022-11-26] VITALS: Ht 185.4 cm; Wt 127.4 kg
[2022-11-26 01:45] LABS: Urine Bacteria FEW /hpf (None Seen); Urine Blood 2+ /uL (Negative); Urine Clarity Clear (Clear); Urine Color Yellow (Yellow); Urine Hyaline Cast FEW /lpf (0 - 2); Urine Mucus FEW (None Seen); Urine Protein, UAD 1+ (Negative); Urine Specific Gravity 1.027 (1.001-1.035); Urine Urobilinogen Normal (Negative); Urine WBC 10 /hpf (0 - 3); Urine pH 5.5 (5.0-8.0)
[2022-11-26 02:56] LABS: Basophils # (auto) 0.1 10 ^3/uL (0-0.2); Basophils % (auto) 0.3 % (0.0-2.0); Eosinophils # (auto) 0.1 10 ^3/uL (0-0.8); Eosinophils % (auto) 0.7 % (0.0-7.0); Hematocrit 45.1 % (41.0-53.0); Hemoglobin 14.7 g/dL (13.5-17.5); Lymphocytes # (auto) 2.2 10 ^3/uL (0.4-5.4); Lymphocytes % (auto) 11.1 % (10.0-50.0); Mean Corpuscular Hemoglobin 31.3 pg (28.0-32.0); Mean Corpuscular Hgb Conc. 32.7 g/dL (32.0-36.0); Mean Corpuscular Volume 95.8 fL (80.0-100.0); Monocytes # (auto) 2.7 10 ^3/uL (0-1.3); Monocytes % (auto) 13.8 % (0.0-12.0); Neutrophils # (auto) 14.4 10 ^3/uL (1.6-8.6); Neutrophils % (auto) 74.1 % (37.0-80.0); Red Cell Distribution Width 16.6 % (11.8-14.3); White Blood Cell 19.4 10^3/uL (4.4-10.8)
[2022-11-26 03:33] LABS: Alanine Aminotransferase 94 U/L (7-40); Albumin 3.8 g/dL (3.2-4.8); Alkaline Phosphatase 144 U/L (46-116); Anion Gap 8 (5-15); Aspartate Aminotransferase 79 U/L (13-40); Bilirubin, Total 0.8 mg/dL (0.2-1.0); Blood Urea Nitrogen 9 mg/dL (9-23); Calcium 8.7 mg/dL (8.7-10.4); Carbon Dioxide 21 mmol/L (20-30); Chloride 102 mmol/L (98-107); Glucose 150 mg/dL (74-106); Lipase 34 U/L (12-53); Potassium 4.2 mmol/L (3.5-5.1); Total Protein 7.1 g/dL (5.7-8.2)
[2022-11-26 04:14] LABS: Sodium 131 mmol/L (136-145)
[2022-11-26] MEDS ORDERED: levoFLOXacin 500MG 100 ML IV ONE (05:00)
[2022-11-26] MEDS ORDERED: metroNIDAZOLE 500MG/100ML 100 ML IV ONE (05:00)
[2022-11-26] MEDS ORDERED: SODIUM CHLORIDE 0.9% 1,000 ML IV ONE ×2 (06:00→06:15)
[2022-11-26 06:10] LABS: Lactic Acid w/Reflex 2.7 mmol/L (0.4-2.0)
[2022-11-26] MEDS ORDERED: SODIUM CHLORIDE 0.9% 500 ML IV ONE ×2 (06:15)
[2022-11-26 08:14] VITALS: PULSE 72; RESP 16; O2SAT 95
[2022-11-26] MEDS ORDERED: MORPHINE SULFATE INJ 2 MG/ml SYRG IV PRN (09:15)
[2022-11-26 09:32] LABS: Basophils # (auto) 0.1 10 ^3/uL (0-0.2); Basophils % (auto) 0.5 % (0.0-2.0); Eosinophils # (auto) 0.1 10 ^3/uL (0-0.8); Eosinophils % (auto) 0.6 % (0.0-7.0); Hematocrit 43.4 % (41.0-53.0); Hemoglobin 13.7 g/dL (13.5-17.5); Lymphocytes # (auto) 2.5 10 ^3/uL (0.4-5.4); Lymphocytes % (auto) 14.2 % (10.0-50.0); Mean Corpuscular Hemoglobin 30.8 pg (28.0-32.0); Mean Corpuscular Hgb Conc. 31.6 g/dL (32.0-36.0); Mean Corpuscular Volume 97.3 fL (80.0-100.0); Monocytes # (auto) 2.4 10 ^3/uL (0-1.3); Monocytes % (auto) 13.5 % (0.0-12.0); Neutrophils # (auto) 12.6 10 ^3/uL (1.6-8.6); Neutrophils % (auto) 71.2 % (37.0-80.0); Nucleated Red Blood Cells % 0.1 %; Red Blood Cells 4.46 10^6/uL (4.5-5.90); White Blood Cell 17.7 10^3/uL (4.4-10.8)
[2022-11-26] MEDS: SODIUM CHLORIDE 0.9% 1,000 ML IV SCH ×2 (09:41→22:02)
[2022-11-26 09:44] LABS: INR 1.17 (0.9-1.15); Partial Thromboplastin Time 29.7 SEC (24.5-34.5); Prothrombin Time 12.2 sec (9.3-11.8)
[2022-11-26] MEDS: PANTOPRAZOLE 40 MG/10 ML VIAL INJ IV SCH ×2 (10:18→22:08)
[2022-11-26] MEDS: ONDANSETRON HCL 4 MG/2 ML VIAL IV PRN ×3 (10:37→21:56)
[2022-11-26] MEDS: metroNIDAZOLE 500MG/100ML 100 ML IV SCH ×2 (14:29→22:08)
[2022-11-26 17:00] VITALS: BP 109/69; PULSE 76; RESP 17; TEMP 98.2; O2SAT 92
[2022-11-26 17:07] VITALS: PULSE 76; RESP 17; O2SAT 97
[2022-11-26] MEDS: metroNIDAZOLE 500 MG TAB PO SCH ×2 (17:21→22:01)
[2022-11-26 17:46] VITALS: BP 109/69; PULSE 76; RESP 17; TEMP 98.2; O2SAT 96
[2022-11-26] MEDS ORDERED: PATIENTS OWN MEDICATION (Atorvastatin Calcium 1 TAB) PO SCH (18:00)
[2022-11-26 18:06] LABS: Basophils # (auto) 0 10 ^3/uL (0-0.2); Basophils % (auto) 0.3 % (0.0-2.0); Eosinophils # (auto) 0.2 10 ^3/uL (0-0.8); Eosinophils % (auto) 1.2 % (0.0-7.0); Hematocrit 40.5 % (41.0-53.0); Hemoglobin 13.4 g/dL (13.5-17.5); Lymphocytes # (auto) 1.8 10 ^3/uL (0.4-5.4); Lymphocytes % (auto) 13.9 % (10.0-50.0); Mean Corpuscular Hemoglobin 31.7 pg (28.0-32.0); Monocytes # (auto) 1.8 10 ^3/uL (0-1.3); Monocytes % (auto) 13.6 % (0.0-12.0); Neutrophils # (auto) 9.4 10 ^3/uL (1.6-8.6); Nucleated Red Blood Cells % 0.1 %; Red Blood Cells 4.22 10^6/uL (4.5-5.90); Red Cell Distribution Width 16.5 % (11.8-14.3); White Blood Cell 13.2 10^3/uL (4.4-10.8)
[2022-11-26] MEDS ORDERED: GABA-1250 PO (18:41)
[2022-11-26] MEDS ORDERED: HYDR-4798 PO (18:42)
[2022-11-26 20:00] VITALS: BP 112/66; PULSE 76; RESP 18; TEMP 98.2; O2SAT 96
[2022-11-26 22:00] VITALS: BP 137/68; PULSE 111; RESP 18; TEMP 99.2; O2SAT 90
[2022-11-26] MEDS: HYDROcodone-ACET 5/325MG TAB PO PRN (22:01)
[2022-11-26] MEDS: METOPROLOL TARTRATE 25 MG TAB PO SCH (22:02)
[2022-11-26] MEDS: ATORVASTATIN 20 MG TAB PO SCH (22:02)
[2022-11-27] VITALS (7 sets, daily range): BP systolic 104–134; BP diastolic 66–84; PULSE 78–101; RESP 16–22; TEMP 98.1–98.6; O2SAT 90–98
[2022-11-27 01:02] LABS: Basophils # (auto) 0 10 ^3/uL (0-0.2); Basophils % (auto) 0.2 % (0.0-2.0); Eosinophils # (auto) 0.1 10 ^3/uL (0-0.8); Eosinophils % (auto) 0.7 % (0.0-7.0); Hematocrit 38.7 % (41.0-53.0); Hemoglobin 12.7 g/dL (13.5-17.5); Lymphocytes # (auto) 1.2 10 ^3/uL (0.4-5.4); Lymphocytes % (auto) 9.3 % (10.0-50.0); Mean Corpuscular Hemoglobin 31.5 pg (28.0-32.0); Mean Corpuscular Hgb Conc. 32.9 g/dL (32.0-36.0); Mean Corpuscular Volume 95.6 fL (80.0-100.0); Monocytes # (auto) 1.8 10 ^3/uL (0-1.3); Monocytes % (auto) 14.7 % (0.0-12.0); Neutrophils # (auto) 9.3 10 ^3/uL (1.6-8.6); Neutrophils % (auto) 75.1 % (37.0-80.0); Nucleated Red Blood Cells % 0.1 %; Red Blood Cells 4.04 10^6/uL (4.5-5.90); Red Cell Distribution Width 16.4 % (11.8-14.3); White Blood Cell 12.4 10^3/uL (4.4-10.8)
[2022-11-27] MEDS: metroNIDAZOLE 500MG/100ML 100 ML IV SCH (05:51)
[2022-11-27] MEDS: metroNIDAZOLE 500 MG TAB PO SCH ×4 (05:51→21:01)
[2022-11-27 05:52] LABS: Basophils # (auto) 0 10 ^3/uL (0-0.2); Basophils % (auto) 0.4 % (0.0-2.0); Eosinophils # (auto) 0.1 10 ^3/uL (0-0.8); Eosinophils % (auto) 0.8 % (0.0-7.0); Hematocrit 37.3 % (41.0-53.0); Hemoglobin 12.6 g/dL (13.5-17.5); Lymphocytes # (auto) 1.6 10 ^3/uL (0.4-5.4); Lymphocytes % (auto) 13.5 % (10.0-50.0); Mean Corpuscular Hemoglobin 31.8 pg (28.0-32.0); Mean Corpuscular Hgb Conc. 33.7 g/dL (32.0-36.0); Mean Corpuscular Volume 94.5 fL (80.0-100.0); Monocytes # (auto) 1.7 10 ^3/uL (0-1.3); Monocytes % (auto) 13.8 % (0.0-12.0); Neutrophils # (auto) 8.7 10 ^3/uL (1.6-8.6); Neutrophils % (auto) 71.5 % (37.0-80.0); Nucleated Red Blood Cells % 0.1 %; Red Blood Cells 3.94 10^6/uL (4.5-5.90); Red Cell Distribution Width 16.3 % (11.8-14.3); White Blood Cell 12.1 10^3/uL (4.4-10.8)
[2022-11-27 06:09] LABS: Alanine Aminotransferase 59 U/L (7-40); Albumin 3.2 g/dL (3.2-4.8); Alkaline Phosphatase 95 U/L (46-116); Anion Gap 6 (5-15); Aspartate Aminotransferase 50 U/L (13-40); BUN/Creatinine Ratio 11.7 (10.0-20.0); Blood Urea Nitrogen 11 mg/dL (9-23); Calcium 7.9 mg/dL (8.5-10.1); Carbon Dioxide 24 mmol/L (20-30); Chloride 106 mmol/L (98-107); Glucose 107 mg/dL (74-106); Potassium 3.7 mmol/L (3.5-5.1); Sodium 136 mmol/L (136-145)
[2022-11-27 06:10] LABS: Bilirubin, Total 0.8 mg/dL (0.2-1.0); Total Protein 5.7 g/dL (5.7-8.2)
[2022-11-27] MEDS ORDERED: cefTRIAXone 1GM/50ML D5W 50 ML IV SCH (09:00)
[2022-11-27] MEDS: PANTOPRAZOLE 40 MG/10 ML VIAL INJ IV SCH (09:54)
[2022-11-27] MEDS: METOPROLOL TARTRATE 25 MG TAB PO SCH ×2 (09:56→21:01)
[2022-11-27] MEDS: POTASSIUM CHL 20 Meq TABLET PO SCH (09:57)
[2022-11-27] MEDS: TAMSULOSIN HYDROCHLORIDE 0.4 MG CAP PO SCH (09:57)
[2022-11-27] MEDS: FINASTERIDE 5 MG TAB PO SCH (09:57)
[2022-11-27] MEDS: FUROSEMIDE 40 MG TAB PO SCH (09:58)
[2022-11-27] MEDS: LISINOPRIL 20 MG TAB PO SCH (09:59)
[2022-11-27] MEDS: ALLOPURINOL 300 MG TAB PO SCH (10:04)
[2022-11-27] MEDS ORDERED: VANCOMYCIN HCL 125MG/5ML ORAL SOL PO SCH (12:00)
[2022-11-27 13:29] LABS: Basophils # (auto) 0.1 10 ^3/uL (0-0.2); Basophils % (auto) 0.6 % (0.0-2.0); Eosinophils # (auto) 0.2 10 ^3/uL (0-0.8); Eosinophils % (auto) 1.5 % (0.0-7.0); Hematocrit 40.8 % (41.0-53.0); Hemoglobin 13.3 g/dL (13.5-17.5); Lymphocytes # (auto) 1.8 10 ^3/uL (0.4-5.4); Lymphocytes % (auto) 14.3 % (10.0-50.0); Mean Corpuscular Hemoglobin 31.4 pg (28.0-32.0); Mean Corpuscular Hgb Conc. 32.6 g/dL (32.0-36.0); Mean Corpuscular Volume 96.2 fL (80.0-100.0); Monocytes # (auto) 1.5 10 ^3/uL (0-1.3); Monocytes % (auto) 12.3 % (0.0-12.0); Neutrophils # (auto) 8.9 10 ^3/uL (1.6-8.6); Neutrophils % (auto) 71.3 % (37.0-80.0); Nucleated Red Blood Cells % 0.1 %; Red Blood Cells 4.24 10^6/uL (4.5-5.90); Red Cell Distribution Width 16.1 % (11.8-14.3); White Blood Cell 12.5 10^3/uL (4.4-10.8)
[2022-11-27] MEDS: SODIUM CHLORIDE 0.9% 1,000 ML IV SCH (16:38)
[2022-11-27] MEDS: HYDROcodone-ACET 5/325MG TAB PO PRN (21:00)
[2022-11-27] MEDS: ATORVASTATIN 20 MG TAB PO SCH (21:00)
[2022-11-28] VITALS (7 sets, daily range): BP systolic 104–117; BP diastolic 59–80; PULSE 78–105; RESP 18–22; TEMP 97.8–100.6; O2SAT 93–96
[2022-11-28] MEDS: SODIUM CHLORIDE 0.9% 1,000 ML IV SCH ×3 (01:15→16:09)
[2022-11-28] MEDS: metroNIDAZOLE 500 MG TAB PO SCH ×4 (06:08→21:24)
[2022-11-28 06:22] LABS: Basophils # (auto) 0.1 10 ^3/uL (0-0.2); Basophils % (auto) 0.5 % (0.0-2.0); Eosinophils # (auto) 0.2 10 ^3/uL (0-0.8); Eosinophils % (auto) 1.4 % (0.0-7.0); Hemoglobin 13.7 g/dL (13.5-17.5); Lymphocytes # (auto) 1.5 10 ^3/uL (0.4-5.4); Lymphocytes % (auto) 13.8 % (10.0-50.0); Mean Corpuscular Hemoglobin 31.4 pg (28.0-32.0); Mean Corpuscular Hgb Conc. 32.5 g/dL (32.0-36.0); Mean Corpuscular Volume 96.7 fL (80.0-100.0); Monocytes # (auto) 1.6 10 ^3/uL (0-1.3); Monocytes % (auto) 14.2 % (0.0-12.0); Neutrophils # (auto) 7.7 10 ^3/uL (1.6-8.6); Neutrophils % (auto) 70.1 % (37.0-80.0); Nucleated Red Blood Cells % 0.1 %; Red Blood Cells 4.35 10^6/uL (4.5-5.90); Red Cell Distribution Width 16.4 % (11.8-14.3)
[2022-11-28 06:50] LABS: Alanine Aminotransferase 54 U/L (7-40); Albumin 3.3 g/dL (3.2-4.8); Alkaline Phosphatase 111 U/L (46-116); Anion Gap 8 (5-15); Aspartate Aminotransferase 55 U/L (13-40); BUN/Creatinine Ratio 7.4 (10.0-20.0); Blood Urea Nitrogen 7 mg/dL (9-23); Calcium 8.1 mg/dL (8.5-10.1); Carbon Dioxide 22 mmol/L (20-30); Chloride 105 mmol/L (98-107); Glucose 104 mg/dL (74-106); Potassium 3.8 mmol/L (3.5-5.1); Sodium 135 mmol/L (136-145)
[2022-11-28 06:51] LABS: Bilirubin, Total 0.6 mg/dL (0.2-1.0)
[2022-11-28] MEDS: FUROSEMIDE 40 MG TAB PO SCH (09:25)
[2022-11-28] MEDS: HYDROcodone-ACET 5/325MG TAB PO PRN ×2 (09:26→18:57)
[2022-11-28] MEDS: ALLOPURINOL 300 MG TAB PO SCH (09:26)
[2022-11-28] MEDS: TAMSULOSIN HYDROCHLORIDE 0.4 MG CAP PO SCH (09:26)
[2022-11-28] MEDS: LISINOPRIL 20 MG TAB PO SCH (09:29)
[2022-11-28] MEDS: METOPROLOL TARTRATE 25 MG TAB PO SCH ×2 (09:30→21:27)
[2022-11-28] MEDS: POTASSIUM CHL 20 Meq TABLET PO SCH (09:30)
[2022-11-28] MEDS: FINASTERIDE 5 MG TAB PO SCH (09:30)
[2022-11-28] MEDS: PANTOPRAZOLE 40 MG/10 ML VIAL INJ IV SCH (09:44)
[2022-11-28] MEDS ORDERED: cefTRIAXone 1GM/50ML D5W 50 ML IV ONE (13:00)
[2022-11-28] MEDS: ONDANSETRON HCL 4 MG/2 ML VIAL IV PRN (15:10)
[2022-11-28] MEDS: ACETAMINOPHEN 325 MG TAB PO PRN (15:10)
[2022-11-28] MEDS: ATORVASTATIN 20 MG TAB PO SCH (21:24)
[2022-11-29] VITALS (12 sets, daily range): BP systolic 101–130; BP diastolic 57–76; PULSE 79–105; RESP 18–22; TEMP 98–98.6; O2SAT 93–96
[2022-11-29] MEDS: ALBUTEROL SULF 2.5 MG/0.5ML(0.5%) NEB SOLN NEB PRN (05:13)
[2022-11-29] MEDS: metroNIDAZOLE 500 MG TAB PO SCH ×4 (05:31→21:08)
[2022-11-29] MEDS: TAMSULOSIN HYDROCHLORIDE 0.4 MG CAP PO SCH (09:33)
[2022-11-29] MEDS: POTASSIUM CHL 20 Meq TABLET PO SCH (09:33)
[2022-11-29] MEDS: LISINOPRIL 20 MG TAB PO SCH (09:34)
[2022-11-29] MEDS: FLORASTOR (S. BOULARDII) 250 MG CAP PO SCH (09:35)
[2022-11-29] MEDS: ACETAMINOPHEN 325 MG TAB PO PRN (09:35)
[2022-11-29] MEDS: FUROSEMIDE 40 MG TAB PO SCH (09:36)
[2022-11-29] MEDS: FINASTERIDE 5 MG TAB PO SCH (09:36)
[2022-11-29] MEDS: ALLOPURINOL 300 MG TAB PO SCH (09:37)
[2022-11-29] MEDS: METOPROLOL TARTRATE 25 MG TAB PO SCH ×2 (09:38→21:16)
[2022-11-29] MEDS: PANTOPRAZOLE 40 MG/10 ML VIAL INJ IV SCH (09:43)
[2022-11-29] MEDS: cefTRIAXone 1GM/50ML D5W 50 ML IV SCH (09:48)
[2022-11-29] MEDS ORDERED: FUROSEMIDE 40 MG/4 ML VIAL IV ONE (18:15)
[2022-11-29] MEDS ORDERED: POTASSIUM CHL 20 Meq TABLET PO ONE (18:15)
[2022-11-29] MEDS: HYDROcodone-ACET 5/325MG TAB PO PRN (18:28)
[2022-11-29] MEDS: ATORVASTATIN 20 MG TAB PO SCH (21:09)
[2022-11-30] VITALS (11 sets, daily range): BP systolic 100–126; BP diastolic 56–68; PULSE 85–104; RESP 18–20; TEMP 98.4–98.9; O2SAT 93–98
[2022-11-30] MEDS: ALBUTEROL SULF 2.5 MG/0.5ML(0.5%) NEB SOLN NEB PRN (00:44)
[2022-11-30] MEDS: HYDROcodone-ACET 5/325MG TAB PO PRN (01:04)
[2022-11-30] MEDS: metroNIDAZOLE 500 MG TAB PO SCH ×4 (05:20→21:00)
[2022-11-30] MEDS: cefTRIAXone 1GM/50ML D5W 50 ML IV SCH (09:30)
[2022-11-30] MEDS: PANTOPRAZOLE 40 MG/10 ML VIAL INJ IV SCH (09:32)
[2022-11-30] MEDS: ACETAMINOPHEN 325 MG TAB PO PRN ×2 (09:32→16:26)
[2022-11-30] MEDS: POTASSIUM CHL 20 Meq TABLET PO SCH (09:33)
[2022-11-30] MEDS: LISINOPRIL 20 MG TAB PO SCH (09:33)
[2022-11-30] MEDS: FLORASTOR (S. BOULARDII) 250 MG CAP PO SCH (09:33)
[2022-11-30] MEDS: FINASTERIDE 5 MG TAB PO SCH (09:33)
[2022-11-30] MEDS: FUROSEMIDE 40 MG TAB PO SCH (09:33)
[2022-11-30] MEDS: TAMSULOSIN HYDROCHLORIDE 0.4 MG CAP PO SCH (09:33)
[2022-11-30] MEDS: METOPROLOL TARTRATE 25 MG TAB PO SCH ×2 (09:34→21:16)
[2022-11-30] MEDS: ALLOPURINOL 300 MG TAB PO SCH (09:34)
[2022-11-30] MEDS: CHOLESTYRAMINE 4 GM POWDER PO SCH (12:49)
[2022-11-30] MEDS: ATORVASTATIN 20 MG TAB PO SCH (21:01)
[2022-11-30] MEDS: MELATONIN 5 MG TAB PO PRN (23:42)
[2022-12-01] VITALS (8 sets, daily range): BP systolic 105–115; BP diastolic 59–72; PULSE 73–101; RESP 18–22; TEMP 98–98.3; O2SAT 95–97
[2022-12-01] MEDS: metroNIDAZOLE 500 MG TAB PO SCH ×4 (05:31→21:51)
[2022-12-01] MEDS: PANTOPRAZOLE 40 MG/10 ML VIAL INJ IV SCH (09:59)
[2022-12-01] MEDS: ALLOPURINOL 300 MG TAB PO SCH (09:59)
[2022-12-01] MEDS: LISINOPRIL 20 MG TAB PO SCH (10:00)
[2022-12-01] MEDS: TAMSULOSIN HYDROCHLORIDE 0.4 MG CAP PO SCH (10:00)
[2022-12-01] MEDS: METOPROLOL TARTRATE 25 MG TAB PO SCH ×2 (10:00→21:52)
[2022-12-01] MEDS: FLORASTOR (S. BOULARDII) 250 MG CAP PO SCH (10:00)
[2022-12-01] MEDS: FINASTERIDE 5 MG TAB PO SCH (10:00)
[2022-12-01] MEDS: POTASSIUM CHL 20 Meq TABLET PO SCH (10:00)
[2022-12-01] MEDS: FUROSEMIDE 40 MG TAB PO SCH (10:00)
[2022-12-01] MEDS: CHOLESTYRAMINE 4 GM POWDER PO SCH (12:45)
[2022-12-01 15:34] LABS: Basophils # (auto) 0 10 ^3/uL (0-0.2); Basophils % (auto) 0.2 % (0.0-2.0); Eosinophils # (auto) 0.2 10 ^3/uL (0-0.8); Eosinophils % (auto) 0.8 % (0.0-7.0); Hematocrit 38.7 % (41.0-53.0); Hemoglobin 12.6 g/dL (13.5-17.5); Lymphocytes # (auto) 1.3 10 ^3/uL (0.4-5.4); Lymphocytes % (auto) 5.8 % (10.0-50.0); Mean Corpuscular Hemoglobin 31.1 pg (28.0-32.0); Mean Corpuscular Hgb Conc. 32.6 g/dL (32.0-36.0); Mean Corpuscular Volume 95.6 fL (80.0-100.0); Monocytes # (auto) 1.1 10 ^3/uL (0-1.3); Neutrophils # (auto) 19.9 10 ^3/uL (1.6-8.6); Neutrophils % (auto) 88.2 % (37.0-80.0); Red Blood Cells 4.05 10^6/uL (4.5-5.90); Red Cell Distribution Width 16.5 % (11.8-14.3); White Blood Cell 22.5 10^3/uL (4.4-10.8)
[2022-12-01 15:58] LABS: Alanine Aminotransferase 21 U/L (7-40); Albumin 2.8 g/dL (3.2-4.8); Alkaline Phosphatase 133 U/L (46-116); Anion Gap 3 (5-15); Aspartate Aminotransferase 36 U/L (13-40); BUN/Creatinine Ratio 16.1 (10.0-20.0); Bilirubin, Total 0.3 mg/dL (0.2-1.0); Blood Urea Nitrogen 14 mg/dL (9-23); Calcium 7.9 mg/dL (8.7-10.4); Carbon Dioxide 25 mmol/L (20-30); Chloride 106 mmol/L (98-107); Glucose 145 mg/dL (74-106); Potassium 3.9 mmol/L (3.5-5.1); Sodium 134 mmol/L (136-145); Total Protein 5.2 g/dL (5.7-8.2)
[2022-12-01] MEDS: ATORVASTATIN 20 MG TAB PO SCH (21:51)
[2022-12-01] MEDS: MELATONIN 5 MG TAB PO PRN (21:52)
[2022-12-02] VITALS (9 sets, daily range): BP systolic 102–132; BP diastolic 49–84; PULSE 70–95; RESP 18–27; TEMP 97.8–98.2; O2SAT 92–96
[2022-12-02] MEDS: metroNIDAZOLE 500 MG TAB PO SCH ×4 (05:43→21:34)
[2022-12-02] MEDS: PANTOPRAZOLE 40 MG/10 ML VIAL INJ IV SCH (09:51)
[2022-12-02] MEDS: FLORASTOR (S. BOULARDII) 250 MG CAP PO SCH (09:51)
[2022-12-02] MEDS: ALLOPURINOL 300 MG TAB PO SCH (09:51)
[2022-12-02] MEDS: FINASTERIDE 5 MG TAB PO SCH (09:52)
[2022-12-02] MEDS: TAMSULOSIN HYDROCHLORIDE 0.4 MG CAP PO SCH (09:52)
[2022-12-02] MEDS: FUROSEMIDE 40 MG TAB PO SCH (09:52)
[2022-12-02] MEDS: METOPROLOL TARTRATE 25 MG TAB PO SCH ×2 (09:52→21:40)
[2022-12-02] MEDS: POTASSIUM CHL 20 Meq TABLET PO SCH (09:52)
[2022-12-02] MEDS: LISINOPRIL 20 MG TAB PO SCH (09:53)
[2022-12-02] MEDS: ACETAMINOPHEN 325 MG TAB PO PRN (11:18)
[2022-12-02] MEDS: CHOLESTYRAMINE 4 GM POWDER GT SCH (11:25)
[2022-12-02] MEDS: MELATONIN 5 MG TAB PO PRN (21:34)
[2022-12-02] MEDS: ATORVASTATIN 20 MG TAB PO SCH (21:34)
[2022-12-03] VITALS (9 sets, daily range): BP systolic 131–152; BP diastolic 65–85; PULSE 85–92; RESP 18–30; TEMP 97.8–98.6; O2SAT 91–96
[2022-12-03] MEDS: HYDROcodone-ACET 5/325MG TAB PO PRN (01:52)
[2022-12-03] MEDS: ACETAMINOPHEN 325 MG TAB PO PRN (05:26)
[2022-12-03] MEDS: metroNIDAZOLE 500 MG TAB PO SCH ×4 (05:26→22:06)
[2022-12-03] MEDS: PANTOPRAZOLE 40 MG/10 ML VIAL INJ IV SCH (10:44)
[2022-12-03] MEDS: TAMSULOSIN HYDROCHLORIDE 0.4 MG CAP PO SCH (10:45)
[2022-12-03] MEDS: FINASTERIDE 5 MG TAB PO SCH (10:45)
[2022-12-03] MEDS: FUROSEMIDE 40 MG TAB PO SCH (10:45)
[2022-12-03] MEDS: FLORASTOR (S. BOULARDII) 250 MG CAP PO SCH (10:45)
[2022-12-03] MEDS: POTASSIUM CHL 20 Meq TABLET PO SCH (10:45)
[2022-12-03] MEDS: METOPROLOL TARTRATE 25 MG TAB PO SCH ×2 (10:45→22:07)
[2022-12-03] MEDS: ALLOPURINOL 300 MG TAB PO SCH (10:45)
[2022-12-03] MEDS: LISINOPRIL 20 MG TAB PO SCH (10:46)
[2022-12-03] MEDS: CHOLESTYRAMINE 4 GM POWDER GT SCH (13:04)
[2022-12-03] MEDS: GABAPENTIN 300 MG CAP PO SCH ×2 (13:59→22:06)
[2022-12-03] MEDS: VANCOMYCIN HCL 125MG/5ML ORAL SOL PO SCH ×2 (18:09→22:07)
[2022-12-03] MEDS: ATORVASTATIN 20 MG TAB PO SCH (22:06)
[2022-12-04] VITALS (7 sets, daily range): BP systolic 101–142; BP diastolic 65–80; PULSE 82–97; RESP 16–28; TEMP 97.9–98.8; O2SAT 91–95
[2022-12-04] MEDS: metroNIDAZOLE 500 MG TAB PO SCH ×4 (05:06→21:33)
[2022-12-04] MEDS: GABAPENTIN 300 MG CAP PO SCH ×3 (05:06→21:31)
[2022-12-04] MEDS: VANCOMYCIN HCL 125MG/5ML ORAL SOL PO SCH ×4 (05:07→21:31)
[2022-12-04] MEDS: PANTOPRAZOLE 40 MG/10 ML VIAL INJ IV SCH (09:42)
[2022-12-04] MEDS: FINASTERIDE 5 MG TAB PO SCH (09:43)
[2022-12-04] MEDS: POTASSIUM CHL 20 Meq TABLET PO SCH (09:43)
[2022-12-04] MEDS: ALLOPURINOL 300 MG TAB PO SCH (09:43)
[2022-12-04] MEDS: FLORASTOR (S. BOULARDII) 250 MG CAP PO SCH (09:43)
[2022-12-04] MEDS: LISINOPRIL 20 MG TAB PO SCH (09:44)
[2022-12-04] MEDS: TAMSULOSIN HYDROCHLORIDE 0.4 MG CAP PO SCH (09:44)
[2022-12-04] MEDS: FUROSEMIDE 40 MG TAB PO SCH (09:44)
[2022-12-04] MEDS: METOPROLOL TARTRATE 25 MG TAB PO SCH ×2 (09:45→21:32)
[2022-12-04] MEDS: CHOLESTYRAMINE 4 GM POWDER GT SCH (12:42)
[2022-12-04 13:55] LABS: Hemoglobin 13.2 g/dL (13.5-17.5); Mean Corpuscular Hemoglobin 31.4 pg (28.0-32.0); Mean Corpuscular Volume 95.1 fL (80.0-100.0); Red Blood Cells 4.21 10^6/uL (4.5-5.90); Red Cell Distribution Width 16.3 % (11.8-14.3); White Blood Cell 14.1 10^3/uL (4.4-10.8)
[2022-12-04 14:12] LABS: Basophils % (manual) 0 (0.0-2.0); Blast Cells 0; Metamyelocytes % 0; Myelocytes % 0; Promyelocytes % 0; Reactive Lymphocytes 0
[2022-12-04 14:23] LABS: Alanine Aminotransferase 18 U/L (7-40); Albumin 3.1 g/dL (3.2-4.8); Alkaline Phosphatase 161 U/L (46-116); Anion Gap 3 (5-15); Aspartate Aminotransferase 36 U/L (13-40); BUN/Creatinine Ratio 6.3 (10.0-20.0); Bilirubin, Total 0.3 mg/dL (0.2-1.0); Blood Urea Nitrogen 5 mg/dL (9-23); Calcium 8.1 mg/dL (8.7-10.4); Carbon Dioxide 29 mmol/L (20-30); Chloride 104 mmol/L (98-107); Glucose 147 mg/dL (74-106); Potassium 3.8 mmol/L (3.5-5.1); Sodium 136 mmol/L (136-145)
[2022-12-04 15:26] LABS: Urine Bacteria NONE SEEN /hpf (None Seen); Urine Blood 2+ /uL (Negative); Urine Budding Yeast MODERATE /hpf (None Seen); Urine Clarity Clear (Clear); Urine Color Yellow (Yellow); Urine Hyaline Cast FEW /lpf (0 - 2); Urine Mucus FEW (None Seen); Urine Protein, UAD Negative (Negative); Urine Urobilinogen Normal (Negative); Urine WBC 17 /hpf (0 - 3); Urine pH 5.5 (5.0-8.0)
[2022-12-04 15:39] LABS: Anisocytosis Slight; Band Neutrophils % (manual) 6; Eosinophils % (manual) 1 (0-7); Lymphocytes % (manual) 12 (10.0-50.0); Monocytes % (manual) 6 (0-12); Platelet Estimate Adequate
[2022-12-04] MEDS: ATORVASTATIN 20 MG TAB PO SCH (21:32)
[2022-12-05] VITALS (10 sets, daily range): BP systolic 134–153; BP diastolic 74–85; PULSE 74–96; RESP 18–20; TEMP 97.7–98.7; O2SAT 90–96
[2022-12-05] MEDS: ACETAMINOPHEN 325 MG TAB PO PRN (04:14)
[2022-12-05] MEDS: GABAPENTIN 300 MG CAP PO SCH ×3 (06:21→21:38)
[2022-12-05] MEDS: VANCOMYCIN HCL 125MG/5ML ORAL SOL PO SCH ×4 (06:21→21:39)
[2022-12-05] MEDS: metroNIDAZOLE 500 MG TAB PO SCH ×4 (06:21→21:37)
[2022-12-05] MEDS: PANTOPRAZOLE 40 MG/10 ML VIAL INJ IV SCH (10:30)
[2022-12-05] MEDS: FLORASTOR (S. BOULARDII) 250 MG CAP PO SCH (10:31)
[2022-12-05] MEDS: POTASSIUM CHL 20 Meq TABLET PO SCH (10:31)
[2022-12-05] MEDS: TAMSULOSIN HYDROCHLORIDE 0.4 MG CAP PO SCH (10:31)
[2022-12-05] MEDS: METOPROLOL TARTRATE 25 MG TAB PO SCH ×2 (10:32→21:39)
[2022-12-05] MEDS: FUROSEMIDE 40 MG TAB PO SCH (10:32)
[2022-12-05] MEDS: LISINOPRIL 20 MG TAB PO SCH (10:33)
[2022-12-05] MEDS: CHOLESTYRAMINE 4 GM POWDER GT SCH ×2 (10:33→21:38)
[2022-12-05] MEDS: ALLOPURINOL 300 MG TAB PO SCH (10:33)
[2022-12-05] MEDS: FINASTERIDE 5 MG TAB PO SCH (10:33)
[2022-12-05] MEDS: ATORVASTATIN 20 MG TAB PO SCH (21:38)
[2022-12-06] VITALS (10 sets, daily range): BP systolic 116–156; BP diastolic 76–88; PULSE 71–96; RESP 18–20; TEMP 97.6–98.9; O2SAT 91–98
[2022-12-06] MEDS: GABAPENTIN 300 MG CAP PO SCH ×3 (05:30→21:41)
[2022-12-06] MEDS: metroNIDAZOLE 500 MG TAB PO SCH ×4 (05:30→21:40)
[2022-12-06] MEDS: VANCOMYCIN HCL 125MG/5ML ORAL SOL PO SCH ×4 (05:31→21:43)
[2022-12-06] MEDS: CHOLESTYRAMINE 4 GM POWDER GT SCH ×2 (10:00→21:40)
[2022-12-06] MEDS: PANTOPRAZOLE 40 MG/10 ML VIAL INJ IV SCH (10:00)
[2022-12-06] MEDS: FLORASTOR (S. BOULARDII) 250 MG CAP PO SCH (10:00)
[2022-12-06] MEDS: FINASTERIDE 5 MG TAB PO SCH (10:01)
[2022-12-06] MEDS: POTASSIUM CHL 20 Meq TABLET PO SCH (10:01)
[2022-12-06] MEDS: ALLOPURINOL 300 MG TAB PO SCH (10:01)
[2022-12-06] MEDS: TAMSULOSIN HYDROCHLORIDE 0.4 MG CAP PO SCH (10:01)
[2022-12-06] MEDS: FUROSEMIDE 40 MG TAB PO SCH (10:02)
[2022-12-06] MEDS: LISINOPRIL 20 MG TAB PO SCH (10:02)
[2022-12-06] MEDS: METOPROLOL TARTRATE 25 MG TAB PO SCH ×2 (10:05→21:42)
[2022-12-06] MEDS: ATORVASTATIN 20 MG TAB PO SCH (21:40)
[2022-12-07] MEDS: VANCOMYCIN HCL 125MG/5ML ORAL SOL PO SCH ×4 (06:00→21:56)
[2022-12-07] MEDS: TAMSULOSIN HYDROCHLORIDE 0.4 MG CAP PO SCH (10:00)
[2022-12-07] MEDS: FLUCONAZOLE 100 MG TAB PO SCH (10:00)
[2022-12-07] MEDS: POTASSIUM CHL 20 Meq TABLET PO SCH (10:00)
[2022-12-07] MEDS: LISINOPRIL 20 MG TAB PO SCH (10:00)
[2022-12-07] MEDS: FLORASTOR (S. BOULARDII) 250 MG CAP PO SCH (10:00)
[2022-12-07] MEDS: PANTOPRAZOLE 40 MG/10 ML VIAL INJ IV SCH (10:00)
[2022-12-07] MEDS: FUROSEMIDE 40 MG TAB PO SCH (10:00)
[2022-12-07] MEDS: FINASTERIDE 5 MG TAB PO SCH (10:00)
[2022-12-07] MEDS: ALLOPURINOL 300 MG TAB PO SCH (10:00)
[2022-12-07 10:52] VITALS: O2SAT 95
[2022-12-07] MEDS: metroNIDAZOLE 500 MG TAB PO SCH ×4 (14:04→21:49)
[2022-12-07] MEDS: GABAPENTIN 300 MG CAP PO SCH ×3 (14:05→21:48)
[2022-12-07] MEDS: CHOLESTYRAMINE 4 GM POWDER GT SCH ×2 (14:05→21:50)
[2022-12-07 20:00] VITALS: PULSE 93; RESP 18; O2SAT 97
[2022-12-07] MEDS: ATORVASTATIN 20 MG TAB PO SCH (21:48)
[2022-12-07] MEDS: ACETAMINOPHEN 325 MG TAB PO PRN (21:49)
[2022-12-07] MEDS: METOPROLOL TARTRATE 25 MG TAB PO SCH ×2 (21:49→22:00)
[2022-12-07 22:00] VITALS: BP 156/82; PULSE 93; RESP 18; TEMP 97.8; O2SAT 92
[2022-12-08] VITALS (8 sets, daily range): BP systolic 131–143; BP diastolic 80–87; PULSE 87–88; RESP 19–24; TEMP 36.5; O2SAT 95–98
[2022-12-08] MEDS: metroNIDAZOLE 500 MG TAB PO SCH (05:47)
[2022-12-08] MEDS: GABAPENTIN 300 MG CAP PO SCH (05:47)
[2022-12-08] MEDS: VANCOMYCIN HCL 125MG/5ML ORAL SOL PO SCH (05:48)
[2022-12-08] MEDS: CHOLESTYRAMINE 4 GM POWDER GT SCH (10:11)
[2022-12-08] MEDS: FLORASTOR (S. BOULARDII) 250 MG CAP PO SCH (10:11)
[2022-12-08] MEDS: TAMSULOSIN HYDROCHLORIDE 0.4 MG CAP PO SCH (10:11)
[2022-12-08] MEDS: PANTOPRAZOLE 40 MG/10 ML VIAL INJ IV SCH (10:11)
[2022-12-08] MEDS: FLUCONAZOLE 100 MG TAB PO SCH (10:11)
[2022-12-08] MEDS: POTASSIUM CHL 20 Meq TABLET PO SCH (10:11)
[2022-12-08] MEDS: FINASTERIDE 5 MG TAB PO SCH (10:12)
[2022-12-08] MEDS: ALLOPURINOL 300 MG TAB PO SCH (10:12)
[2022-12-08] MEDS: LISINOPRIL 20 MG TAB PO SCH (10:12)
[2022-12-08] MEDS: METOPROLOL TARTRATE 25 MG TAB PO SCH (10:12)
[2022-12-08] MEDS: FUROSEMIDE 40 MG TAB PO SCH (10:13)
== END 2022-12-08 12:42 | disposition home health service (06) | DRG 872 ==
LOC: ER 00:33 → OVERFLOW 09:06 → WEST WING 15:50
PROVIDERS: ADMIT Internal Medicine; ATTEND Internal Medicine Cardiovascular Disease
DX: A41.9 Sepsis, unspecified organism (principal); A04.72 Enterocolitis due to Clostridium difficile, not specified as recurrent; E87.1 Hypo-osmolality and hyponatremia; N30.01 Acute cystitis with hematuria; I50.32 Chronic diastolic (congestive) heart failure; K92.1 Melena; G47.33 Obstructive sleep apnea (adult) (pediatric); E78.5 Hyperlipidemia, unspecified; I11.0 Hypertensive heart disease with heart failure; E66.9 Obesity, unspecified; I25.10 Atherosclerotic heart disease of native coronary artery without angina pectoris; N40.1 Benign prostatic hyperplasia with lower urinary tract symptoms; M19.90 Unspecified osteoarthritis, unspecified site; M10.9 Gout, unspecified; R33.8 Other retention of urine; F17.210 Nicotine dependence, cigarettes, uncomplicated; Z88.8 Allergy status to other drugs, medicaments and biological substances; Z95.5 Presence of coronary angioplasty implant and graft; Z86.73 Personal history of transient ischemic attack (TIA), and cerebral infarction without residual deficits; Z82.3 Family history of stroke; Z78.9 Other specified health status; Z68.37 Body mass index [BMI] 37.0-37.9, adult
CPT/HCPCS: 36415; 71045; 74018; 74176; 80053; 81001; 83605; 83690; 84484; 85007; 85025; 85027; 85048; 85610; 85730; 86850; 86900; 86901; 87040; 87045; 87086; 87088; 87186; 87427; 87493; 93005; 94640; 96360; 96374; 96375; C9113; G0378; J0696; J1956; J2405; J3490

== ENCOUNTER → 2023-05-07 | Outpatient (CLI) | payer MEDICARE, MEDICAID ==
[~2023-05-07] MED LIST changes: -ALBUAER3 INH; -APIX2.5T PO; +GABA-1250 PO; +HYDR-4798 PO
== END | disposition home or self-care (01) ==
LOC: Rad HDHVI 12:36
PROVIDERS: ATTEND Internal Medicine Cardiovascular Disease
DX: I35.0 Nonrheumatic aortic (valve) stenosis (principal); I10 Essential (primary) hypertension; E78.5 Hyperlipidemia, unspecified
CPT/HCPCS: 93306

== ENCOUNTER → 2023-08-03 | Day surgery (SDC) | payer MEDICARE, MEDICAID ==
[2023-08-01 12:16] LABS: Basophils # (auto) 0.1 10 ^3/uL (0-0.2); Basophils % (auto) 0.8 % (0.0-2.0); Eosinophils # (auto) 0.4 10 ^3/uL (0-0.8); Eosinophils % (auto) 4.4 % (0.0-7.0); Hematocrit 47.1 % (41.0-53.0); Hemoglobin 15.5 g/dL (13.5-17.5); Lymphocytes # (auto) 3.1 10 ^3/uL (0.4-5.4); Lymphocytes % (auto) 33.8 % (10.0-50.0); Mean Corpuscular Hemoglobin 32.9 pg (28.0-32.0); Mean Corpuscular Hgb Conc. 32.8 g/dL (32.0-36.0); Mean Corpuscular Volume 100.2 fL (80.0-100.0); Monocytes % (auto) 10.6 % (0.0-12.0); Neutrophils # (auto) 4.6 10 ^3/uL (1.6-8.6); Neutrophils % (auto) 50.4 % (37.0-80.0); Nucleated Red Blood Cells % 0.2 %; Red Cell Distribution Width 15.5 % (11.8-14.3); White Blood Cell 9.1 10^3/uL (4.4-10.8)
[2023-08-01 12:34] LABS: INR 1.05 (0.9-1.15); Partial Thromboplastin Time 26.3 SEC (24.5-34.5); Prothrombin Time 11.1 sec (9.3-11.8)
[2023-08-01 12:48] LABS: Alanine Aminotransferase 123 U/L (7-40); Albumin 4.4 g/dL (3.2-4.8); Alkaline Phosphatase 140 U/L (46-116); Anion Gap 4 (5-15); Aspartate Aminotransferase 113 U/L (13-40); BUN/Creatinine Ratio 20.3 (10.0-20.0); Bilirubin, Total 0.7 mg/dL (0.2-1.0); Blood Urea Nitrogen 25 mg/dL (9-23); Calcium 9.6 mg/dL (8.5-10.1); Carbon Dioxide 29 mmol/L (20-30); Chloride 100 mmol/L (98-107); Glucose 131 mg/dL (74-106); Potassium 5.4 mmol/L (3.5-5.1); Sodium 133 mmol/L (136-145); Total Protein 8.1 g/dL (5.7-8.2)
[~2023-08-03] VITALS: Ht 182.9 cm; Wt 126.1 kg
[~2023-08-03] MED LIST changes: +DexAMETHasone SOD PHOS 10MG/1ML VIAL INJ ONE; +MEPERIDINE HCL (25 MG/ML) 1ML VIAL ONE; +MIDAZOLAM HCL 2MG/2ML 2ml VIAL (1mg/ml) ONE; +MIDAZOLAM HCL 5 MG/ML-1ML VIAL ONE; +PROPOFOL 10 MG/ML 20 ML IV ONE; +SODIUM CHLORIDE LOCK 10 ML ONE; +diphenhdrAMINE HCL 50 MG/1 ML VL ONE; +fentaNYL CITRATE 100 MCG/2 ML VL ONE
[2023-08-03 14:02] VITALS: RESP 11; TEMP 97.6; O2SAT 96
[2023-08-03 14:45] VITALS: BP 115/68; PULSE 70; RESP 17; O2SAT 94
== END | disposition home or self-care (01) ==
LOC: GI 09:45
PROVIDERS: ATTEND Internal Medicine Gastroenterology
DX: R19.4 Change in bowel habit (principal); D12.0 Benign neoplasm of cecum; D12.3 Benign neoplasm of transverse colon; R93.3 Abnormal findings on diagnostic imaging of other parts of digestive tract; K21.9 Gastro-esophageal reflux disease without esophagitis; I10 Essential (primary) hypertension; I25.10 Atherosclerotic heart disease of native coronary artery without angina pectoris; I25.2 Old myocardial infarction; I48.91 Unspecified atrial fibrillation; J44.9 Chronic obstructive pulmonary disease, unspecified; G47.30 Sleep apnea, unspecified; E66.9 Obesity, unspecified; Z68.37 Body mass index [BMI] 37.0-37.9, adult; Z79.899 Other long term (current) drug therapy; Z86.19 Personal history of other infectious and parasitic diseases; Z95.5 Presence of coronary angioplasty implant and graft; Z98.890 Other specified postprocedural states; Z88.8 Allergy status to other drugs, medicaments and biological substances
CPT/HCPCS: 36415; 45385; 80053; 85025; 85610; 85730; 88305; J1100; J1200; J2175; J2250; J2704; J3010; J7030

== ENCOUNTER → 2024-04-09 | Outpatient (CLI) | payer MEDICARE, MEDICAID ==
[~2024-04-09] MED LIST changes: -DexAMETHasone SOD PHOS 10MG/1ML VIAL INJ ONE; -MEPERIDINE HCL (25 MG/ML) 1ML VIAL ONE; -MIDAZOLAM HCL 2MG/2ML 2ml VIAL (1mg/ml) ONE; -MIDAZOLAM HCL 5 MG/ML-1ML VIAL ONE; -PROPOFOL 10 MG/ML 20 ML IV ONE; -SODIUM CHLORIDE LOCK 10 ML ONE; -TAMS0.4C36 PO; +TAMS0.4C39 PO; -diphenhdrAMINE HCL 50 MG/1 ML VL ONE; -fentaNYL CITRATE 100 MCG/2 ML VL ONE
== END | disposition home or self-care (01) ==
LOC: Rad HDHVI 13:46
PROVIDERS: ATTEND Internal Medicine Cardiovascular Disease
DX: I10 Essential (primary) hypertension (principal); E78.5 Hyperlipidemia, unspecified
CPT/HCPCS: 93925

== ENCOUNTER 2024-08-04 13:35 | Outpatient (CLI) | payer MEDICARE, MEDICAID | END 2024-08-04 17:00 | disposition home or self-care (01) | LOC: Rad HDHVI 13:35 | PROVIDERS: ATTEND Internal Medicine Cardiovascular Disease | DX: I07.1 Rheumatic tricuspid insufficiency (principal); I11.0 Hypertensive heart disease with heart failure; I50.9 Heart failure, unspecified; E78.5 Hyperlipidemia, unspecified | CPT/HCPCS: 93306 ==